=== PATIENT | female | born 1965 | race Caucasian/White ===

== ENCOUNTER 2017-01-06 06:57 | Observation (INO) | payer OTHER ==
[~2017-01-06 06:57] MED LIST: Buffered Lidocaine 1% SYRIN* 3 ML/SYR SYRINGE INTRADERM ONE; Dexamethasone IV* 4 MG/ML 1 ML (4 MG) IV SLOW PU ONE; Famotidine IV* 10 MG/ML 2 ML (20 mg) IV ONE
[2017-01-06 07:30] LABS: Manual Entry Verification HAN0055; UR Preg Internal Control QC Line Present
[2017-01-06] MEDS ORDERED: Famotidine IV* 10 MG/ML 2 ML (20 mg) ONE (07:32)
[2017-01-06] MEDS ORDERED: Dexamethasone IV* 4 MG/ML 1 ML (4 MG) ONE (07:32)
[2017-01-06] MEDS ORDERED: ceFAZolin 2 GM PREMIX(*) 2 GM/50 ML BAG IVPB ONE (07:33)
[2017-01-06] MEDS ORDERED: Thrombin 5,000 UNITS* 1 APPLIC KIT - topical use - TOPICAL ONE (08:40)
[2017-01-06] MEDS ORDERED: Lidocain 1% EPI 1:100,000 * 30 ML MDV ONE (08:40)
[2017-01-06] MEDS ORDERED: Bacitracin IV* 50,000 UNITS INJ ONE (08:41)
[2017-01-06] MEDS ORDERED: Propofol* 10 MG/ML 20 ML BTL IV PUSH ONE (09:53)
[2017-01-06] MEDS ORDERED: Lidocaine 2% PF* 5 ML VIAL ONE (09:53)
[2017-01-06] MEDS ORDERED: fentaNYL* 50 MCG/ML 5 ML VIAL (250 MCG VIAL) ONE (09:54)
[2017-01-06] MEDS ORDERED: Rocuronium* 10 MG/ML VIAL ONE (09:54)
[2017-01-06] MEDS ORDERED: oxyCODONE/Acetamin 5/325 MG* TAB PO PRN (10:34)
[2017-01-06] MEDS ORDERED: Scopolamine 1.5 mg* PATCH TRANSDERM PRN (10:34)
[2017-01-06] MEDS ORDERED: PROCHLORPERAZINE INJ 5 MG/ML 2 ML VIAL IV PRN (10:34)
[2017-01-06] MEDS ORDERED: fentaNYL* 50 MCG/ML 2 ML VIAL (100 MCG VIAL) ONE ×3 (10:36→13:01)
[2017-01-06] MEDS ORDERED: EPHEDrine (Pressors)* 50 MG/ML VIAL ONE (11:02)
[2017-01-06] MEDS ORDERED: Ondansetron INJ* 2 MG/ML VIAL ONE (11:54)
[2017-01-06] MEDS ORDERED: Magnesium Hydroxide LIQ* 30 ML UDC PO PRN (12:18)
[2017-01-06] MEDS ORDERED: Acetaminophen TAB* 325 MG PO PRN (12:18)
[2017-01-06] MEDS ORDERED: SUMAtriptan TAB* 25 MG PO PRN (12:22)
[2017-01-06] MEDS: fentaNYL* 50 MCG/ML 2 ML VIAL (100 MCG VIAL) IV PRN ×3 (12:39→13:32)
[2017-01-06] MEDS ORDERED: Morphine INJ* 10 MG/ML 1 ML SYRINGE ONE (13:01)
[2017-01-06] MEDS: Morphine INJ* 2 MG/ML 1 ML SYRINGE IV PRN ×2 (13:02→13:15)
--- NOTE | 2017-01-06 13:23 | RAD ---
Indication: Anterior core decompression and fusion at C4-C5, C5-C6, and C6-C7. Comparison: July 05, 2016 MRI. Technique: Crosstable lateral radiographs of the cervical spine performed in the OR. Report: 1031 hours exam: Endotracheal tube in place. Sensor lead level of the oropharynx. At the caudal margin of the [id number] a linear metallic instrument/needle is visualized at the approximate C6 vertebral body level with conspicuity of the spine limited by superimposed tissues. 1049 hours exam: Tip of metallic instrument/needle is at the level of the C4-C5 disc space. 1220 hours exam: While conspicuity is limited due to superimposed tissues a cortical plate is visualized spanning from C5 to C7 with vertebral body screws at C5, C6, and C7. Intervening bone graft at the disc spaces. IMPRESSION: Procedural control films.
[2017-01-06] MEDS ORDERED: Benzocaine/Menthol LOZ* 1 LOZENGE PO PRN (13:51)
[2017-01-06] MEDS: HYDROcodone/ACETAMIN 5-325 MG* 1 TAB PO PRN ×2 (15:03→20:07)
[2017-01-07] MEDS: HYDROcodone/ACETAMIN 5-325 MG* 1 TAB PO PRN ×3 (03:21→13:57)
--- NOTE | 2017-01-07 07:47 | PN ---
Progress Note - Progress Note SOAP: Subjective: []POD # 1 Feels better,arms improved Some chin numbness but already resolving Objective: []Neuro intact , neck soft Mod drain output Assessment: []Stable post op Plan: []Will recheck drain output this aft and d/c hopefully
[2017-01-07 08:33] LABS: Hematocrit 34 % (35-47); Hemoglobin 11.4 g/dl (12.0-16.0); Mean Corpuscular HGB Conc 33 g/dl (31-36); Mean Corpuscular Hemoglobin 29 pg (27-31); Mean Corpuscular Volume 87 fL (80-97); Mean Platelet Volume 8 um3 (7.4-10.4); Red Blood Count 3.94 10^6/ul (4.0-5.4); Red Cell Distribution Width 17 % (10.5-15); White Blood Count 5.8 10^3/ul (3.5-10.8)
[2017-01-07] MEDS ORDERED: Folic Acid TAB* 1 MG PO SCH (09:00)
[2017-01-07] MEDS ORDERED: Atorvastatin* 10 MG TAB PO SCH (09:00)
[2017-01-07] MEDS ORDERED: Methotrexate TAB* 2.5 MG PO SCH (09:00)
[2017-01-07] MEDS ORDERED: Citalopram TAB* 20 MG PO SCH (09:00)
[2017-01-07 10:03] VITALS: BP 100/60
[2017-01-09] MEDS ORDERED: Scopolomine PATCH Remove* 1 NOTE MISC PATCH OFF ONE (10:35)
--- NOTE | 2017-01-10 12:51 | OP ---
DATE OF OPERATION: 01/06/17 - ROOM #339 DATE OF : 67 SURGEON: Luis Eduardo Cam MD DOMESTIC TECHNICIAN: MARTHA Lazo ANESTHESIOLOGIST: Lela Mccord MD ANESTHESIA: General. PRE-OP DIAGNOSIS: Cervical spondylosis C5-6, C6-7. POST-OP DIAGNOSIS: Cervical spondylosis C5-6, C6-7. OPERATIVE PROCEDURE: Anterior cervical diskectomy and allograft fusion, C5-6 and C6-7 with anterior instrumentation. DESCRIPTION OF PROCEDURE: After satisfactory general anesthesia was obtained, the patient was placed on the operating table in the supine position with the neck slightly extended and the head maintained in a horseshoe headrest. The anterior aspect of the cervical spine was clipped, prepped, and draped in a sterile manner for anterior cervical exposure and a skin incision outlined over the C5-6 interspace with the assistance of a hot air furnace installer repairer radiograph. This incision was infiltrated with 1% Xylocaine with epinephrine after which it was turned down sharply to the level of the subcutaneous tissues. A superior and inferiorly based subcutaneous flap was then fashioned and the platysma muscle divided along the direction of its fibers. Utilizing a combination of sharp and blunt dissection, a dissection plane was carried down to the anterior aspect of the spine. An additional radiograph verified the C4-5 interspace, after which the initial decompression was done at the C5-6 level. Self- retaining retractors were placed replaced to facilitate exposure. At the C5-6 level, there was noted to be a large anterior spur that was decompressed utilizing the Midas Mehran drill. The anterior two-thirds of disk material was removed utilizing a combination of the drill, curettes and pituitary rongeurs. [place] distractor pins were then placed in the C5 and C6 vertebral bodies and gentle disk space distraction applied. The operating microscope was then brought into the field and the remainder of the procedure was done under microscopic visualization. Projecting posteriorly at the C5-6 level was a large spur, predominantly coming off the superior aspect of C6. This was decompressed with a combination of the Midas Mehran drill and [place] rongeurs. This was carried back posteriorly until normal dura was encountered. At the conclusion of the decompression, a nerve hook went out readily with both C6 nerve roots. A 7- mm bone graft was then placed into the vertebral body defect and slightly countersunk. Attention was then directed to the C6-7 level where a similar large anterior osteophyte was drilled down and removed. [place] distractor pins were then placed in the C6-C7 vertebral bodies and gentle disk space distraction applied. At this level, the degenerative changes were even more pronounced. Again, dissection was carried back until normal dura was encountered. At the conclusion of the decompression, the C7 nerve roots were noted to be free in their course. An 8-mm graft was placed at this level and slightly countersunk. The vertebral bodies were then smoothed out to accept a [employer] [place] plate extending from C5 to C7 and secured into position with 13-mm self-drilling screws. A post-construct x-ray showed good placement of the graft at C5-6 with good screw placement in C5. The portion of the construct below this could not be seen secondary to the patient's body habitus. After assuring hemostasis, the wound was thoroughly irrigated after which a drain was placed in the prevertebral space and tunneled out towards the right side. The subcutaneous tissues were then reapproximated with 3-0 Vicryl and the skin closed with Steri-Strips. The estimated blood loss was less than 50 cc and the final sponge, padding, and needle counts were correct. The patient was taken to the recovery room, extubated, and in stable condition. [id number]/[facility] #: [id number] JARROD
--- NOTE | 2017-01-22 00:26 | DS ---
DISCHARGE SUMMARY: DATE OF ADMISSION: 01/06/17 DATE OF DISCHARGE: 01/07/17 DISCHARGE DIAGNOSIS: Cervical spondylosis, C5-6 and C6-7. SPECIAL PROCEDURE: Anterior cervical diskectomy and fusion, C5-6 and C6-7 with instrumentation. HOSPITAL COURSE: This 51-year-old female was seen in office with signs and symptoms of cervical spo ndylosis with radiculopathy. She has failed to improve over several months with conservative treatm ents and was admitted at this time for elective surgical intervention. On the day of admission, she was taken to surgery, where under general anesthesia, an anterior cervical diskectomy and fusion at C5-6 and C6-7 operation was carried out. Postoperatively, she has done well. She was eating _ and drinking without difficulty. She was ambulating independently. Pain is well controlled with o ral pain medication. On the first postoperative day, she was discharged home to the care of her [facility]. Discharge instructions including wound care and activity level were discussed with the patient and provided. She will be seen in our office in approximately 2 weeks for followup. DISCHARGE MEDICATIONS: [place] 5/325 mg 2 tablets by mouth every 4 hours as needed for pain. MARTHA KEY [id number]/[facility] #: [id number]
== END 2017-01-07 14:05 | disposition home or self-care (01) ==
LOC: OR 06:57 → SSU 13:52
PROVIDERS: ADMIT Neurological Surgery; ATTEND Neurological Surgery
PROC: 0RG20K0 Fusion of 2 or more Cervical Vertebral Joints with Nonautologous Tissue Substitute, Anterior Approach, Anterior Column, Open Approach (ICD-10-PCS; 2017-01-06)
PROC: 0RB30ZZ Excision of Cervical Vertebral Disc, Open Approach (ICD-10-PCS; principal; 2017-01-06 09:00)
DX: M47.22 Other spondylosis with radiculopathy, cervical region (principal)
CPT/HCPCS: 36415; 72040; 81025; 85025; 96374; A9270-GY; C1713; C1776; C9359; G0378; J0690; J1100; J2270; J2405; J2704; J3010; J8610

== ENCOUNTER 2019-12-25 22:00 | Emergency (ER) | payer OTHER ==
--- OUTSIDE RECORDS SUMMARY | 2019-12-25 22:06 | XMS REPORT | Continuity of Care Document ---
:1965 External Reference #:[id number] Author Name Ashley Raya DNP, RN, EXTRUSION MANAGER-BC (transmitted by agent of provider Codie Douglas) Address [address] [facility], [address] [place] [id number] Care Team Providers Name Role Phone Juju Byrd, DO - Family Medicine Care Team Information Printing Bindery Assistant Morteza Hoffmann DO - Family Care Team Information Printing Bindery Assistant [phone] Medicine Problems Active Problems Provider Date Cervical spondylosis without Luis Eduardo Cam M.D. Onset: 07/19/2016 myelopathy Convalescence after surgery Luis Eduardo Cam M.D. Onset: 02/16/2017 Hyperlipidemia Onset: 09/09/2014 Obstructive sleep apnea syndrome Ashley Raya DNP, RN, Onset: 08/16/2019 EXTRUSION MANAGER-BC Note: Mild. 10/21/18 HST: AHI 7.8/hour, latesha oxygen 88%, wt 238 Social History Type Date Description Comments Sex Unknown Tobacco Use Start: Unknown Never Smoked Cigarettes Smoking Status Reviewed: 12/24/19 Never Smoked Cigarettes ETOH Use Occasionally consumes alcohol Tobacco Use Start: Unknown Patient has never smoked Recreational Drug Use Denies Drug Use Exercise Type/Frequency Exercises sporadically Allergies, Adverse Reactions, Alerts Active Allergies Reaction Severity Comments Date Lyrica Urticaria 07/19/2016 Medications Active Medications SIG Qnty Indications Ordering Date Provider Meclizine HCL Take one 30tabs Sebas Hope, 11/09/2018 12.5mg capsule/tablet by M.D. Tablets mouth twice daily as needed for vertigo Naproxen 1 tablet with 180tabs M51.36 Sebas Hope, 08/02/2018 500mg Tablets food by mouth M.D. twice a day as needed for pain, avoid other nsaids Tizanidine HCL 1 or 2 cap by [facility] M54.6 Sebas Hope, 05/15/2018 2mg mouth as needed M.D. Capsules at night for spasms Flintstones Complete 1 tab by mouth Unknown twice daily 60mg Chewtabs Ondansetron HCL one by mouth Unknown 4mg every 8 hours as Tablets needed for nausea Clonazepam Take One Tablet Unknown 0.5mg By Mouth Every 8 Tablets Hours as Needed For Anxiety Maximum Daily Dose Three Tablets Tramadol HCL 1-2 tablets by Unknown 50mg mouth every 6 Tablets hours as needed pain Orencia As directed. Unknown Beginning January, per pt Sumatriptan Succinate 1 tab by mouth as Unknown needed for 50mg Tablets migraine Escitalopram Oxalate 1 by mouth every Unknown day 10mg Tablets Vitamin D-3 1000 Iu 2 tabs Unknown Tablets (2000 Iu) by mouth daily Vitamin B Complex 1 by mouth every Unknown day Tablets Calcium + D3 1 by mouth every Unknown day [id number] Tablets Cranberry Concentrate 1 by mouth every Unknown day 500mg Capsules Magnesium Citrate 1 by mouth every Unknown 100mg day Tablets Flax Seed ,Fish Oil 1 by mouth every Unknown day 1000mg Capsules Simvastatin Take One Tablet Unknown 20mg By Mouth Every Tablets Day Medications Administered in Office Medication SIG Qnty Indications Ordering Provider Date PPD Sebas Hope M.D. 08/02/2018 Injection Immunizations CPT Code Status Date Vaccine Reaction Lot # [id number] Given 11/09/2018 Pneumococcal Conjugate no immediate reaction [id number] Vaccine 13 Valent For noted Intramuscular Use 33352 Given 08/02/2018 Influenza Virus Vaccine, no immediate reaction [id number] Quadrivalent, Split, Preservative Free 25955 Given 08/24/2014 Influenza Virus 3Yrs & Over 30948 Given 08/17/2011 Tdap - Tetanus/Diptheria/Acellular Pertussis Vital Signs Date Vital Result Comment 12/24/2019 8:21am Height 65 inches 5'5" Weight 238.00 lb Heart Rate 63 /min BP Systolic Sitting 118 mmHg lg BP Diastolic Sitting 78 mmHg lg O2 % BldC Oximetry 98 % BMI (Body Mass Index) 39.6 kg/m2 08/20/2019 8:04am Height 65 inches 5'5" Heart Rate 64 /min BP Systolic Sitting 116 mmHg Lue large cuff BP Diastolic Sitting 82 mmHg Lue large cuff Respiratory Rate 12 /min O2 % BldC Oximetry 98 % On Ra Results Test Acquired Date Facility Test Result H/L Range Note Laboratory test 08/08/2019 [facility] Erythrocyte Sed 13 mm/Hr Normal 0-[address] [place] [address] [phone] C Reactive Protein 1.10 mg/L Normal <8.01 CBC W/Auto 08/08/2019 [facility] White Blood 2.3 10^3/uL Low 3.5-10.[address] [place] [address] [phone] Red Blood Count 4.57 10^6/uL Normal 3.70-4.87 Hemoglobin 14.0 g/dL Normal 12.0-16.0 Hematocrit 40 % Normal 35-47 Mean Corpuscular Volume 88 fL Normal 80-97 Mean Corpuscular Hemoglobin 31 pg Normal 27-31 Mean Corpuscular HGB Conc 35 g/dL Normal 31-36 Red Cell Distribution Width 14 % Normal 10-15 Platelet Count 116 10^3/uL Low 150-450 Mean Platelet Volume 7.7 fL Normal 7.4-10.4 Abs Neutrophils 1.0 10^3/uL Low 1.5-7.7 Abs Lymphocytes 1.0 10^3/uL Normal 1.0-4.8 Abs Monocytes 0.2 10^3/uL Normal 0-0.8 Abs Eosinophils 0.0 10^3/uL Normal 0-0.6 Abs Basophils 0.0 10^3/uL Normal 0-0.2 Abs Nucleated RBC 0.0 10^3/uL Granulocyte % 45.5 % Lymphocyte % 44.4 % Monocyte % 8.7 % Eosinophil % 0.8 % Basophil % 0.6 % Nucleated Red Blood Cells % 0.0 Laboratory 08/08/2019 [facility] TSH (Thyroid 1.66 Normal 0.34 -5.60 test finding [address] Stim Horm) mcIU/[place] [address] [phone] Aldolase 6.3 U/L <7.7 1 CMP Panel 08/08/2019 [facility] Sodium 141 mmol/L Normal 135- [address] [place] [address] [phone] Potassium 4.1 mmol/L Normal 3.5-5.0 Chloride 108 mmol/L Normal 101-111 Co2 Carbon Dioxide 28 mmol/L Normal 22-32 Anion Gap 5 mmol/L Normal 2-11 Glucose 94 mg/dL Normal 70-100 Blood Urea Nitrogen 16 mg/dL Normal 6-24 Creatinine 0.65 mg/dL Normal 0.51-0.95 BUN/Creatinine Ratio 24.6 High 8-20 Calcium 9.1 mg/dL Normal 8.6-10.3 Total Protein 6.4 g/dL Normal 6.4-8.9 Albumin 4.2 g/dL Normal 3.2-5.2 Globulin 2.2 g/dL Normal 2-4 Albumin/Globulin Ratio 1.9 Normal 1-3 Total Bilirubin 0.70 mg/dL Normal 0.2-1.0 Alkaline Phosphatase 89 U/L Normal 34-104 Alt 19 U/L Normal 7-52 Ast 24 U/L Normal 13-39 Egfr Non- 95.7 >60 Egfr 115.8 >60 2 1 Test Performed by: [place] [address] Tub Mender: Nicanor Walls M.D. Ph.D.; IA# [id number] 2 Because ethnic data is not always readily available, this report includes an eGFR for both -Americans and non- Americans. The National Kidney Disease Education Program (NKDEP) does not endorse the use of the MDRD equation for patients that are not between the ages of 18 and 70, are , have extremes of body size, muscle mass, or nutritional status, or are non- or non-. According to the National Kidney Foundation, irrespective of diagnosis, the stage of the disease is based on the level of kidney function: Stage Description GFR(mL/min/1.73 m(2)) 1 Kidney damage with normal or decreased GFR 90 2 Kidney damage with mild decrease in GFR 60-89 3 Moderate decrease in GFR 30-59 4 Severe decrease in GFR 15-29 5 Kidney failure <15 (or dialysis) Procedures Description No Information Available Medical Devices Description No Information Available Encounters Type Date Location Provider Dx Diagnosis Office Visit 11/08/2019 [facility] D[facility]at[facility] AT [place] Or[place]ga, L40.0 Psoriasis 3:00p [facility] MENDOZA vulgaris L85.3 Xerosis cutis Office Visit 08/20/2019 [facility] And Ashley G47.33 Obstructive sleep 8:15a [facility] Raya RN, apnea (adult) [facility] (pediatric) Office Visit 08/08/2019 [facility] 9:00a at [facility] tendinitis, right leg Office Visit 08/08/2019 Rheumatology Sebas Hope M06.09 Rheumatoid 10:40a Services [facility] 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 tendinitis, right leg M19.072 Primary osteoarthritis, left ankle and foot M76.821 Posterior tibial tendinitis, right leg Office Visit 07/04/2019 2:00p Meera Beltran Achilles at [facility] Jarquin M.D. 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 rheumatoid factor, multiple sit 08/08/2019 M76.61 Achilles tendinitis, right leg Adrian Jarquin M.D. 08/08/2019 D69.6 Thrombocytopenia, unspecified Sebas Hope M.D. 08/08/2019 M79.7 Fibromyalgia Sebas Hope M.D. 08/08/2019 Z79.899 Other fdc (current) drug Sebas Hope M.D. therapy 07/25/2019 M76.61 Achilles tendinitis, right leg Adrian Jarquin M.D. 07/25/2019 M19.072 Primary osteoarthritis, left ankle Adrian Jarquin M.D. and foot 07/25/2019 M76.821 Posterior tibial tendinitis, right Adrian Jarquin M.D. leg 07/04/2019 M76.61 Achilles tendinitis, right leg Adrian Jarquin M.D. 07/04/2019 M19.072 Primary osteoarthritis, left ankle Adrian Jarquin M.D. and foot Plan of Treatment Future Appointment(s):03/24/2020 8:15 am - Ashley Raya DNP, RN, EXTRUSION MANAGER- at [facility]01/10/2020 8:30 am - Tyrone Real MD at [facility] Dermatology AT Dhivpbtk45/17/2020 - Ashley Raya DNP, RN, EXTRUSION MANAGER- BCG47.33 Obstructive sleep apnea (adult) (pediatric)Comments:- 10/21/18 HST AHI 7.8/hour, latesha oxygen 88%, wt 238On CPAP auto 5-12 cm AHI 1/hour, normalFollow up:3 monthsRecommendations:Continue PAP device, Benefitting and compliant with treatment. Since you watch TV in bed and fall asleep, recommend not watching TV in bed, if you must watch TV in bed recommend putting mask on when you get in bed. Try the [employer] FFM (small) fitted today to try. Cleaning Wipe off mask daily (baby wipe-no scent, or warm water) Clean mask, tubing, filter, and water chamber weekly in mild no scent dish soap and water. Hang to dry. If you have any sleepiness while driving you MUST avoid operatinga vehicle or machinery. If you have difficulty with your equipment, or need to replace your mask or hoses, please contact your homecare agency. A weight change of 20 pounds or more may have an effect on your equipment; if you are experiencing problems please call for an appointment. Avoid weight gain, weight loss recommended. If you have any further questions, please call the [facility] at [phone]. Functional Status Description No Information Available Mental Status Description No Information Available Referrals Description No Information Available
--- OUTSIDE RECORDS SUMMARY | 2019-12-25 22:06 | XMS REPORT | Continuity of Care Document ---
:1965 External Reference #:[id number] Author Name Sarah Fragoso (transmitted by agent of provider Morteza Hoffmann) Address [address] [place] [id number] Care Team Providers Name Role Phone HCP given Care Team Information Curriculum Counselor Unavailable [facility] Architectural Engineering Teacher [facility] - Care Team Information Curriculum Counselor [phone] Obstetrics & Gynecology Problems Active Problems Provider Date Pure hypercholesterolemia Nicanor Crawford M.D. Onset: 12/11/2012 Allergic asthma without status asthmaticus Nicanor Crawford M.D. Onset: Myalgia & Myositis Unspecified Morteza Hoffmann D.O. Onset: 10/26/2013 Low back pain Morteza Hoffmann D.O. Onset: 10/26/2013 Irritable bowel syndrome Morteza Hoffmann D.O. Onset: 10/26/2013 Meralgia paresthetica Morteza Hoffmann D.O. Onset: 12/11/2013 Pain in thoracic spine Morteza Hoffmann D.O. Onset: 12/11/2013 Asthma without status asthmaticus Nicanor Crawford M.D. Onset: 01/04/2014 Neck pain Morteza Hoffmann D.O. Onset: 06/21/2014 Brachial neuritis Morteza Hoffmann D.O. Onset: 04/02/2016 Generalized anxiety disorder Morteza Hoffmann D.O. Onset: 04/02/2016 Recurrent major depressive episodes Morteza Hoffmann D.O. Onset: 04/02/2016 Collagen disease Morteza Hoffmann D.O. Onset: 06/26/2016 Spinal stenosis in cervical region Morteza Hoffmann D.O. Onset: 07/09/2016 Cervical spondylosis without myelopathy Morteza Hoffmann D.O. Onset: 2015 Undifferentiated connective tissue disease Morteza Hoffmann D.O. Onset: 2015 Uncomplicated moderate persistent asthma Morteza Hoffmann D.O. Onset: 2017 Social History Type Date Description Comments Sex Unknown ETOH Use Rare Tobacco Use Start: Unknown Non Smoker / No Tobacco Recreational Drug Use Denies Drug Use Smoking Status Reviewed: 12/24/19 Non Smoker / No Tobacco Exercise Type/Frequency Exercises sporadically Sun Exposure Does not use sunscreen Seat Belt/Car Seat always uses seat belt Allergies, Adverse Reactions, Alerts Active Allergies Reaction Severity Comments Date Lyrica hives 12/11/2012 Medications Active Medications SIG Qnty Indications Ordering Date Provider Fluocinonide apply bid Unknown 11/08/2019 0.05% Ointment Fluocinonide apply every kang Unknown 11/08/2019 0.05% Solution Triamcinolone apply thin layer 15gm Morteza Hoffmann, 09/17/2019 Acetonide to affected areas D.O. 0.1% Cream three times a day as needed for itching. Magnesium Citrate 1-2 every evening Unknown 08/07/2019 100mg as needed Tablets Ondansetron HCL 1 by mouth three 30tabs Brian Farias, 07/03/2019 4mg times a day as M.D. Tablets needed for nausea Childrens Chewable 1 tab bid D64.9 Brian Farias, 05/14/2019 Multivitamin With M.D. Iron Chewtabs Klonopin take 1 every 8 30tabs F33.9 Morteza Hoffmann, 04/25/2019 0.5mg Tablets hours as needed D.O. for anxiety Tramadol HCL 1-2 by mouth 120tabs M06.09 Morteza Hoffmann, 01/18/2019 50mg every 6 hours as D.O. Tablets needed for pain Naproxen Take One Tablet Unknown 08/02/2018 500mg Tablets By Mouth Twice A Day With Food as Needed For Pain Avoid Other NSAIDS Tizanidine HCL 1-2 at night po Unknown 06/01/2018 2mg as needed for Capsules spasms Calcium one po daily Unknown 05/10/2018 Vitamin B one, 2x's a week Unknown 05/10/2018 Vitamin D 3 po daily Unknown 05/10/2018 Fish Oil [place]-3 one po daily Unknown 05/10/2018 1000mg Capsules Nystatin apply topically 30gm Morteza Hoffmann, 04/29/2018 [id number]/GM to affected area D.O. Cream two times a day for juliocesar infection Sumatriptan Succinate Take One Tablet 9tabs G43.109 Morteza Hoffmann, 2015 By Mouth AT Onset D.O. 50mg Tablets Of Migraine, May Repeat Once After Two Hours If Needed, Max Of Three Times Per Week Escitalopram Oxalate Take One Tablet 90tabs Morteza Hoffmann, 07/30/2016 By Mouth Every D.O. 10mg Tablets Day Cranberry One Daily Unknown 06/25/2016 [id number] Capsules Simvastatin Take One Tablet 90tabs E78.0 Morteza Hoffmann, 08/23/2013 20mg By Mouth Every D.O. Tablets Day Orencia monthly Unknown 250mg Solution Rec History Medications Prednisone 2 pills for 3 11tabs M79.7 Brian Farias, 09/27/2019 - 20mg days then 1 M.D. 11/27/2019 Tablets pill for 3 days 1/2 pill for 4 days. Medications Administered in Office Medication SIG Qnty Indications Ordering Provider Date injection, kenalog, 10 mg Morteza Hoffmann D.O. 06/02/2018 Injection SC/Im Injections Morteza Hoffmann D.O. 06/02/2018 Injection injection, kenalog, 10 mg Morteza Hoffmann D.O. 06/18/2017 Injection Immunizations CPT Code Status Date Vaccine Lot # [id number] Given 08/08/2019 Influenza Virus Vaccine, Quadrivalent, Split, [id number] Preservative Free 86755 Given 11/09/2018 Prevnar 13 90467 Given 11/09/2018 Prevnar (Pneumococcal Conjugate) 44620 Given 08/07/2018 Influenza Virus Vaccine, Quadrivalent, Split, Im Use 33284 Given 08/02/2018 Influenza Virus Vaccine, Quadrivalent, Split, Preservative Free 25989 Given 09/07/2017 Influenza Virus Vaccine, Quadrivalent, Split, Preservative Free 31588 Given 08/28/2016 Influenza Virus Vaccine, Quadrivalent, Split, [id number] Preservative Free 63080 Given 08/24/2014 Flu, Split Virus 3Yrs 51693 Given 09/14/2012 Pneumococcal Immunization 12648 Given 08/17/2011 Adacel or Boostrix, TDaP 20159 Given 06/21/2011 Adacel or Boostrix, TDaP [id number] Refused 01/04/2014 Flu, Split Virus 3Yrs Vital Signs Date Vital Result Comment 12/24/2019 4:58pm BP Systolic 116 mmHg BP Diastolic 70 mmHg Weight 238.00 lb per pt 11/28/2019 10:58am BP Systolic 108 mmHg BP Diastolic 66 mmHg Heart Rate 58 /min O2 % BldC Oximetry 98 % Body Temperature 98.2 F Results Test Acquired Date Facility Test Result H/L Range Note Comp Metabolic 12/24/2019 [facility] Sodium 138 mmol/L Normal 135- 145 Panel [phone] Potassium 4.1 mmol/L Normal 3.5-5.0 Chloride 105 mmol/L Normal 101-111 Co2 Carbon Dioxide 28 mmol/L Normal 22-32 Anion Gap 5 mmol/L Normal 2-11 Glucose 121 mg/dL High 70-100 Blood Urea Nitrogen 13 mg/dL Normal 6-24 Creatinine 0.74 mg/dL Normal 0.51-0.95 BUN/Creatinine Ratio 17.6 Normal 8-20 Calcium 9.0 mg/dL Normal 8.6-10.3 Total Protein 6.3 g/dL Low 6.4-8.9 Albumin 4.0 g/dL Normal 3.2-5.2 Globulin 2.3 g/dL Normal 2-4 Albumin/Globulin Ratio 1.7 Normal 1-3 Total Bilirubin 0.60 mg/dL Normal 0.2-1.0 Alkaline Phosphatase 94 U/L Normal 34-104 Alt 23 U/L Normal 7-52 Ast 23 U/L Normal 13-39 Egfr Non- 82.1 >60 Egfr 99.3 >60 1 Laboratory test 12/24/2019 [facility] C Reactive 2.89 mg/L Normal < 8.01 finding [phone] Protein CBC Auto Diff 12/24/2019 [facility] White Blood 2.8 Low 3.5-10.8 [phone] Count 10^3/uL Red Blood Count 4.48 10^6/uL Normal 3.70-4.87 Hemoglobin 14.0 g/dL Normal 12.0-16.0 Hematocrit 40 % Normal 35-47 Mean Corpuscular Volume 89 fL Normal 80-97 Mean Corpuscular Hemoglobin 31 pg Normal 27-31 Mean Corpuscular HGB Conc 35 g/dL Normal 31-36 Red Cell Distribution Width 13 % Normal 10-15 Platelet Count 126 10^3/uL Low 150-450 Mean Platelet Volume 8.0 fL Normal 7.4-10.4 Abs Neutrophils 1.4 10^3/uL Low 1.5-7.7 Abs Lymphocytes 1.1 10^3/uL Normal 1.0-4.8 Abs Monocytes 0.2 10^3/uL Normal 0-0.8 Abs Eosinophils 0.0 10^3/uL Normal 0-0.6 Abs Basophils 0.0 10^3/uL Normal 0-0.2 Abs Nucleated RBC 0.0 10^3/uL Granulocyte % 49.7 % Lymphocyte % 40.5 % Monocyte % 8.0 % Eosinophil % 1.1 % Basophil % 0.7 % Nucleated Red Blood Cells % 0.1 Laboratory test 12/24/2019 [facility] Erythrocyte Sed 14 mm/Hr Normal 0-29 finding [phone] Rate Influenza A & B 11/28/2019 [facility] Flu AB Disclaimer (SEE NOTE) 2 Request [phone] Influenza A Molecular NEGATIVE Negative Influenza B Molecular NEGATIVE Negative 3 CBC Auto Diff 11/12/2019 [facility] White Blood Count 2.7 10^3/uL Low 3.5-10.8 [phone] Red Blood Count 4.71 10^6/uL Normal 3.70-4.87 Hemoglobin 14.6 g/dL Normal 12.0-16.0 Hematocrit 43 % Normal 35-47 Mean Corpuscular Volume 91 fL Normal 80-97 Mean Corpuscular Hemoglobin 31 pg Normal 27-31 Mean Corpuscular HGB Conc 34 g/dL Normal 31-36 Red Cell Distribution Width 14 % Normal 10-15 Platelet Count 129 10^3/uL Low 150-450 Mean Platelet Volume 8.3 fL Normal 7.4-10.4 Abs Neutrophils 1.4 10^3/uL Low 1.5-7.7 Abs Lymphocytes 0.9 10^3/uL Low 1.0-4.8 Abs Monocytes 0.2 10^3/uL Normal 0-0.8 Abs Eosinophils 0.0 10^3/uL Normal 0-0.6 Abs Basophils 0.0 10^3/uL Normal 0-0.2 Abs Nucleated RBC 0.0 10^3/uL Granulocyte % 54.5 % Lymphocyte % 35.7 % Monocyte % 7.7 % Eosinophil % 1.4 % Basophil % 0.7 % Nucleated Red Blood Cells % 0.1 Comp Metabolic Panel 11/12/2019 [facility] Sodium 141 mmol/L Normal 135-145 [phone] Potassium 4.3 mmol/L Normal 3.5-5.0 Chloride 107 mmol/L Normal 101-111 Co2 Carbon Dioxide 29 mmol/L Normal 22-32 Anion Gap 5 mmol/L Normal 2-11 Glucose 106 mg/dL High 70-100 Blood Urea Nitrogen 15 mg/dL Normal 6-24 Creatinine 0.67 mg/dL Normal 0.51-0.95 BUN/Creatinine Ratio 22.4 High 8-20 Calcium 9.2 mg/dL Normal 8.6-10.3 Total Protein 6.3 g/dL Low 6.4-8.9 Albumin 4.1 g/dL Normal 3.2-5.2 Globulin 2.2 g/dL Normal 2-4 Albumin/Globulin Ratio 1.9 Normal 1-3 Total Bilirubin 0.70 mg/dL Normal 0.2-1.0 Alkaline Phosphatase 85 U/L Normal 34-104 Alt 20 U/L Normal 7-52 Ast 22 U/L Normal 13-39 Egfr Non- 92.1 >60 Egfr 111.4 >60 4 Laboratory test finding 11/12/2019 [facility] Ferritin 57.1 ng/mL Normal 11-307 5 [phone] Erythrocyte Sed Rate 8 mm/Hr Normal 0-29 6 CRP High Sensitivity 0.89 mg/L <2.00 7 Laboratory test 09/27/2019 [facility] Erythrocyte Sed 10 mm/Hr Normal 0-29 finding [phone] Rate C Reactive Protein 1.47 mg/L Normal <8.01 Laboratory test 08/08/2019 [facility] Erythrocyte Sed 13 mm/Hr Normal 0-29 finding [phone] Rate Aldolase 6.3 U/L <7.7 8 CBC Auto Diff 08/08/2019 [facility] White Blood Count 2.3 10^3/uL Low 3.5-10.8 [phone] Red Blood Count 4.57 10^6/uL Normal 3.70-4.87 [...] Nucleated Red Blood Cells % 0.0 Laboratory test 08/08/2019 [facility] C Reactive 1.10 mg/L Normal < 8.01 finding [phone] Protein TSH (Thyroid Stim Horm) 1.66 mcIU/mL Normal 0.34-5.60 Comp Metabolic Panel 08/08/2019 [facility] Sodium 141 mmol/L Normal 135-145 [phone] Potassium 4.1 mmol/L Normal 3.5-5.0 Chloride 108 [...] Egfr Non- 95.7 >60 Egfr 115.8 >60 9 Laboratory test 07/19/2019 [facility] Surgical SEE RESULT 10, 11 finding [phone] Pathology Order BELOW Laboratory test 07/19/2019 [facility] Clotest SEE RESULT 12, 13 finding [phone] BELOW O P: 07/04/2019 [facility] O P: SEE RESULT 14 Giardia/Cryptospor [phone] Giardia/Cryptosp BELOW Screen or Screen Laboratory test 07/04/2019 [facility] C Difficile B SEE RESULT 15 finding [phone] PCR BELOW Ova & Parasites 07/04/2019 [facility] Parasitic Exam, See Comment 16 Full [phone] Result Urinalysis Profile 07/04/2019 [facility] Urine Color Domi [phone] Urine Appearance Turbid Urine Specific Wilmore 1.018 Normal 1.010-1.030 Urine pH 8.0 Normal 5-9 Urine Urobilinogen Negative Negative Urine Ketones Trace Abnormal Negative Urine Protein Negative Negative Urine Leukocytes Negative Negative Urine Blood Negative Negative * * Abnormal Negative 17 Urine Nitrite Negative Negative Urine Bilirubin Negative Negative Urine Glucose Negative Negative CBC Auto Diff 07/04/2019 [facility] White Blood Count 3.2 10^3/uL Low 3.5-10.8 [phone] Red Blood Count 4.78 10^6/uL Normal 3.70-4.87 Hemoglobin 14.7 g/dL Normal 12.0-16.0 Hematocrit 43 % Normal 35-47 Mean Corpuscular Volume 89 fL Normal 80-97 Mean Corpuscular Hemoglobin 31 pg Normal 27-31 Mean Corpuscular HGB Conc 35 g/dL Normal 31-36 Red Cell Distribution Width 14 % Normal 10-15 Platelet Count 136 10^3/uL Low 150-450 Mean Platelet Volume 7.8 fL Normal 7.4-10.4 Abs Neutrophils 1.7 10^3/uL Normal 1.5-7.7 Abs Lymphocytes 1.3 10^3/uL Normal 1.0-4.8 Abs Monocytes 0.3 10^3/uL Normal 0-0.8 Abs Eosinophils 0.0 10^3/uL Normal 0-0.6 Abs Basophils 0.0 10^3/uL Normal 0-0.2 Abs Nucleated RBC 0.0 10^3/uL Granulocyte % 51.6 % Lymphocyte % 39.7 % Monocyte % 7.8 % Eosinophil % 0.5 % Basophil % 0.4 % Nucleated Red Blood Cells % 0.1 Comp Metabolic Panel 07/04/2019 [facility] Sodium 140 mmol/L Normal 135-145 [phone] Potassium 4.1 mmol/L Normal 3.5-5.0 Chloride 108 mmol/L Normal 101-111 Co2 Carbon Dioxide 27 mmol/L Normal 22-32 Anion Gap 5 mmol/L Normal 2-11 Glucose 90 mg/dL Normal 70-100 Blood Urea Nitrogen 12 mg/dL Normal 6-24 Creatinine 0.71 mg/dL Normal 0.51-0.95 BUN/Creatinine Ratio 16.9 Normal 8-20 Calcium 9.5 mg/dL Normal 8.6-10.3 Total Protein 6.3 g/dL Low 6.4-8.9 Albumin 4.2 g/dL Normal 3.2-5.2 Globulin 2.1 g/dL Normal 2-4 Albumin/Globulin Ratio 2.0 Normal 1-3 Total Bilirubin 0.70 mg/dL Normal 0.2-1.0 Alkaline Phosphatase 92 U/L Normal 34-104 Alt 28 U/L Normal 7-52 Ast 26 U/L Normal 13-39 Egfr Non- 86.4 >60 Egfr 104.6 >60 18 Laboratory test 07/04/2019 [facility] Magnesium 1.9 mg/dL Normal 1.9- 2.7 finding [phone] Lipase 25 U/L Normal 11.0-82.0 C Reactive Protein < 1.00 mg/L Normal <8.01 Lactic Acid 0.9 mmol/L Normal 0.5-2.0 19 1 Because ethnic data is not always readily [...] 15-29 5 Kidney failure <15 (or dialysis) 2 Suboptimal collection technique may reduce sensitivity of test. Refer to the [employer] Test Catalog for collection information: [email or web address] As with all diagnostic procedures, the laboratory results obtained should be used in conjunction with other clinical information available to the physician, including confirmation by another method, as applicable. 3 Electrical Subcontractor: [id number] 4 Because ethnic data is not always readily [...] 15-29 5 Kidney failure <15 (or dialysis) 5 FASTING 6 FASTING 7 FASTING 8 Test Performed by: [address] [address] Social And Human Services Assistant: Nicanor Walls M.D. Ph.D.; CLIA# [id number] 9 Because ethnic data is not always readily [...] 15-29 5 Kidney failure <15 (or dialysis) 10 [id number] 11 SEE RESULT BELOW Name: LUCÍA HUTSON : [address]: Alli Spicer MD Acct: [id number] Unit: [id number] AGE: 53 Location: [facility] Re07/19/19 SEX: F Status: DEP REF SPEC: [id number] CLAUDINE: 07/19/19-[address] [facility] [address]: Alli Spicer MD REQ: [id number] RECD: 07/19/19-1620 STATUS: JOYCE JEAN DR: Morteza oHffmann DO _ ORDERED: LEVEL 4/2 COMMENTS: [id number] FINAL DIAGNOSIS 1. Esophagus, random, biopsy: -- Benign squamous mucosa with mild erosive changes. -- No evidence of eosinophilic esophagitis. -- No columnar component present for evaluation. 2. Colon, ascending, biopsy: -- Tubular adenoma. -- No high grade dysplasia or malignancy. CLINICAL HISTORY Screening/Surveillance for malignancy in asymptomatic patient; globus POST-OPERATIVE DIAGNOSIS EGD: esophagus ??? biopsy for eosinophilic esophagitis; gastric ??? sleeve, biopsy, unknown GAVE; duodenum ??? normal; colonoscopy: to cecum; ascending polyp ??? biopsy ; few diverticulosis GROSS DESCRIPTION 1. The specimen is received in formalin labeled, Biopsy Random Esophagus, and consists of two white-pink irregular soft tissue fragments measuring 0.3 x 0.2 x 0.1 cm and 0.5 x 0.3 x 0.1 cm which are submitted entirely in one cassette. 2. The specimen is received in formalin labeled, Biopsy Ascending Colon Polyp, and consists of a 0.3 x 0.3 x 0.2 cm lopez-pink polypoid soft tissue fragment which is submitted entirely in one cassette. Signed by and Reported on: Adela Finley MD 07/20/19 1304 END OF REPORT DEPARTMENT OF PATHOLOGY, [address] [place] [address] Ben Matthews M.D. Director [facility] # [id number] 12 [id number] 13 SEE RESULT BELOW Name: ARLEN HUTSONMic Corley : [address]: Alli Spicer MD Acct: [id number] Unit: [id number] AGE: 53 Location: [facility] Re07/19/19 SEX: F Status: DEP REF SPEC: [id number] CLAUDINE: 07/19/19-[address] [facility] [address]: Alli Spicer MD REQ: [id number] RECD: 07/19/19 STATUS: OSITO JEAN DR: Morteza Hoffmann DO _ SOURCE: [facility]: ORDERED: Clotest COMMENTS: [id number] Procedure Result Reported Site Clotest Final 07/20/19741 ML Clotest Negative * ML - Main Lab . END OF REPORT DEPARTMENT OF PATHOLOGY, [address] [place] [address] Ben Matthews M.D. Director [facility] # [id number] 14 SEE RESULT BELOW Name: LUCÍA HUTSON Jory : [address]: Brandon Sanchez MD Acct: [id number] Unit: [id number] AGE: 53 Location: ED Re07/04/19 SEX: F Status: DEP ER SPEC: [id number] CLAUDINE: 07/04/[address]: Adela THOMAS REQ: [id number] RECD: 07/04/19 STATUS: OSITO JEAN DR: Brandon Hoffmann DO _ SOURCE: STOOL SPDESC: ORDERED: O P: Giar/Crypt Procedure Result Reported Site O P: Giardia/Cryptospor Screen Final 07/06/19- 1421 ML Organism 1 Neg Cryptosporidium/Giardia Giardia and cryptosporidium antigen testing performed by enzyme immunoassay. Specimen has been forwarded to reference lab for microscopic parasite examination. TEST LIMITATIONS: As with all diagnostic procedures, the results obtained should be used in conjunction with other clinical information available to the physician, including confirmation by another method. Negative results can occur in samples containing antigen below lower limits of detection of the assay. One negative specimen does not rule out the possibility of a parasitic infection. To improve detection it is recommended that three specimens be collected on separate days over a period of not more than seven days. The use of colonic washes, aspirates or other diluted sample types has not been established and could affect the performance of the assay. Stool samples contaminated with an oily or particulate base (eg. Barium, mineral oil etc.) could interfere with the test and are not recommended. * ML - Main Lab . END OF REPORT DEPARTMENT OF PATHOLOGY, [address] [place] [address] Ben Matthews M.D. Director [facility] # [id number] 15 SEE RESULT BELOW Name: LUCÍA HUTSON : [address]: Brandon Sanchez MD Acct: [id number] Unit: [id number] AGE: 53 Location: ED Re07/04/19 SEX: F Status: DEP ER SPEC: [id number] CLAUDINE: 07/04/[address]: Adela THOMAS REQ: [id number] RECD: 07/04/19 STATUS: OSITO JEAN DR: Brandon Hoffmann DO _ SOURCE: STOOL SPDESC: ORDERED: Chan millan PCR, Stool Culture Procedure Result Reported Site Stool Culture Final 07/06/19- 1454 ML Result No enteric pathogens isolated Testing for Salmonella, Shigella, Aeromonas, Plesiomonas, Yersinia and Campylobacter are included in a Stool Culture. Vibrio spp not routinely tested for in a stool culture. If testing is desired, please request specifically when placing test order. Sensitivities not routinely performed on stool isolates, as antibiotics may prolong the carriage rate of bacteria. Please contact the microbiology lab if sensitivities are required. Stool Specimen Description Final 07/04/19- 2224 ML Stool Color Brown Stool Form Nonformed Stool Consistency Watery Shiga Toxin 1 2 Final 07/06/19- 1411 ML Organism 1 Negative Shiga Toxin 1 2 Immunochromatographic Assay C. difficile PCR Final 07/04/19- 2323 ML Organism 1 027 Presumptive NEGATIVE Organism 2 Toxigenic C.diff NEGATIVE * ML - Main Lab . END OF REPORT DEPARTMENT OF PATHOLOGY, [address] [place] [address] Ben Matthews M.D. Director [facility] # [id number] 16 SOURCE: STOOL PARASITIC EXAMINATION FINAL No parasites seen. Cryptosporidium, Cyclospora, and microsporidia are not readily detected by this method. Single negative specimen does not rule out parasitic infection. Test Performed by: [address] [id number] 17 *Ascorbic acid is present which may interfere with detection of blood. 18 Because ethnic data is not always readily [...] 15-29 5 Kidney failure <15 (or dialysis) 19 [facility] Severe Sepsis and Septic Shock Management Bundle Measure requires all lactic acids initially measuring >2.0 mmol/L be repeated. Procedures Date Code Description Status 12/24/2019 11414 Omt 7-8 Body Regions Completed 09/17/2019 63202 Omt 7-8 Body Regions Completed 08/08/2019 31812 Omt 7-8 Body Regions Completed 07/19/2019 [id number] Colonoscopy Completed Medical Devices Description No Information Available Encounters Type Date Location Provider Dx Diagnosis Office Visit 11/28/2019 Main Office Renee Chapa PA B34.9 Viral infection, 11:00a unspecified Office Visit 11/12/2019 Main Office Sahara Treviño, R53.81 Other malaise 2:00p Z68.38 Body mass index (BMI) 38.0-38.9, adult Office Visit 09/27/2019 10:20a Main Office Sarah Fragoso M54.5 Low back pain M79.7 Fibromyalgia Z79.899 Other correction (current) drug therapy Office Visit 09/17/2019 12:55p Main Office Morteza Hoffmann D.O. M54.5 Low back pain M47.22 Other spondylosis with radiculopathy, cervical region M79.7 Fibromyalgia F33.9 Major depressive disorder, recurrent, unspecified M99.05 Segmental and somatic dysfunction of pelvic region M99.03 Segmental and somatic dysfunction of lumbar region M99.04 Segmental and somatic dysfunction of sacral region M99.00 Segmental and somatic dysfunction of head region M99.02 Segmental and somatic dysfunction of thoracic region M99.01 Segmental and somatic dysfunction of cervical region M99.08 Segmental and somatic dysfunction of rib cage M99.06 Segmental and somatic dysfunction of lower extremity Office Visit 08/08/2019 2:30p Main Office Morteza Hoffmann Z23 Encounter for D.O. immunization M35.8 Other specified systemic involvement of connective tissue F33.9 Major depressive disorder, recurrent, unspecified F41.1 Generalized anxiety disorder M99.05 Segmental and somatic dysfunction of pelvic region M99.03 Segmental and somatic dysfunction of lumbar region M99.04 Segmental and somatic dysfunction of sacral region M99.00 Segmental and somatic dysfunction of head region M99.02 Segmental and somatic dysfunction of thoracic region M99.01 Segmental and somatic dysfunction of cervical region M99.08 Segmental and somatic dysfunction of rib cage M99.06 Segmental and somatic dysfunction of lower extremity Office Visit 07/11/2019 10:40a Main Office Renee Chapa, R10.9 Unspecified PA abdominal pain R11.0 Nausea M35.8 Other specified systemic involvement of connective tissue Office Visit 07/03/2019 2:00p Main Office Morteza Hoffmann D.O. 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, cervical region M48.02 Spinal stenosis, cervical region Z79.899 Other correction (current) drug therapy F41.1 Generalized anxiety disorder G57.11 Meralgia paresthetica, right lower limb M54.2 Cervicalgia M79.7 Fibromyalgia M51.36 Other intervertebral disc degeneration, lumbar region M06.09 Rheumatoid arthritis w/o rheumatoid factor, multiple sites Z79.52 senior care (current) use of systemic steroids Assessments Date Code Description Provider 12/24/2019 M79.7 Fibromyalgia Morteza Hoffmann D.O. 12/24/2019 M54.5 Low back pain Morteza Hoffmann D.O. 12/24/2019 M54.6 Pain in thoracic spine Morteza Hoffmann D.O. 12/24/2019 M47.22 Other spondylosis with radiculopathy, Morteza Hoffmann D.O. 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 12/24/2019 F33.9 Major depressive disorder, recurrent, Morteza Hoffmann D.O. unspecified 12/24/2019 M35.8 Other specified systemic involvement of Morteza Hoffmann D.O. connective tissue 12/24/2019 F41.1 Generalized anxiety disorder Morteza Hoffmann D.O. 12/24/2019 M99.03 Segmental and somatic dysfunction of lumbar Morteza Hoffmann D.O. region 12/24/2019 M99.04 Segmental and somatic dysfunction of sacral SopchakMorteza , D.O. region 12/24/2019 M99.00 Segmental and somatic dysfunction of head SopchakMorteza, D.O. region 12/24/2019 M99.01 Segmental and somatic dysfunction of cervical SopchakMorteza, D.O. region 12/24/2019 M99.08 Segmental and somatic dysfunction of rib cage SopchakMorteza, D.O. 12/24/2019 M99.02 Segmental and somatic dysfunction of thoracic SopchakMorteza, D.O. region 12/24/2019 M99.06 Segmental and somatic dysfunction of lower SopchakMorteza , D.O. extremity 12/24/2019 M99.05 Segmental and somatic dysfunction of pelvic SopzunildakMorteza , D.O. region 11/28/2019 B34.9 Viral infection, unspecified Renee Chapa, MARTHA 11/12/2019 R53.81 Other malaise Sahara Treviño MD 11/12/2019 Z68.38 Body mass index (BMI) 38.0-38.9, adult Sahara Treviño MD 09/27/2019 M54.5 Low back pain Liannejesus Leiva, P.A. 09/27/2019 M79.7 Fibromyalgia Lianne Leiva, P.A. 09/27/2019 Z79.899 Other correction (current) drug therapy Lianne Leiva P.A. 09/17/2019 M54.5 Low back pain Morteza Hoffmann D.O. 09/17/2019 M47.22 Other spondylosis with radiculopathy, SopMorteza rich, D.O. cervical region 09/17/2019 M79.7 Fibromyalgia Morteza Hoffmann D.O. 09/17/2019 F33.9 Major depressive disorder, recurrent, Morteza Hoffmann, D.O. unspecified 09/17/2019 M99.05 Segmental and somatic dysfunction of pelvic SopMorteza rich D.O. region 09/17/2019 M99.03 Segmental and somatic dysfunction of lumbar SopMorteza rich D.O. region 09/17/2019 M99.04 Segmental and somatic dysfunction of sacral SopMorteza rich D.O. region 09/17/2019 M99.00 Segmental and somatic dysfunction of head Sopchak, Morteza, D.O. region 09/17/2019 M99.02 Segmental and somatic dysfunction of thoracic Sopchak, Morteza, D.O. region 09/17/2019 M99.01 Segmental and somatic dysfunction of cervical Sopchak, Morteza, D.O. region 09/17/2019 M99.08 Segmental and somatic dysfunction of rib cage Sopchak, Morteza, D.O. 09/17/2019 M99.06 Segmental and somatic dysfunction of lower Sopchak, Morteza , D.O. extremity 08/08/2019 Z23 Encounter for immunization Sopchak, Morteza, D.O. 08/08/2019 M35.8 Other specified systemic involvement of SopMorteza rich, D.O. connective tissue 08/08/2019 F33.9 Major depressive disorder, recurrent, SopzunildakMorteza, D.O. unspecified 08/08/2019 F41.1 Generalized anxiety disorder SopzunildakDonavanon, D.O. 08/08/2019 M99.05 Segmental and somatic dysfunction of pelvic Sopchak, Morteza , D.O. region 08/08/2019 M99.03 Segmental and somatic dysfunction of lumbar Sopchak, Morteza , D.O. region 08/08/2019 M99.04 Segmental and somatic dysfunction of sacral Sopchak, Morteza , D.O. region 08/08/2019 M99.00 Segmental and somatic dysfunction of head Sopchak, Morteza, D.O. region 08/08/2019 M99.02 Segmental and somatic dysfunction of thoracic Sopchak, Morteza, D.O. region 08/08/2019 M99.01 Segmental and somatic dysfunction of cervical Sopchak, Morteza, D.O. region 08/08/2019 M99.08 Segmental and somatic dysfunction of rib cage Sopchak, Morteza, D.O. 08/08/2019 M99.06 Segmental and somatic dysfunction of lower Sopchak, Morteza , D.O. extremity 07/11/2019 R10.9 Unspecified abdominal pain Renee Chapa PA 07/11/2019 R11.0 Nausea Renee Chapa PA 07/11/2019 M35.8 Other specified systemic involvement of Renee Chapa, PA connective tissue 07/03/2019 R11.0 Nausea Morteza Hoffmann D.O. 07/03/2019 R10.9 Unspecified abdominal pain Morteza Hoffmann D.O. 07/03/2019 M35.8 Other specified systemic involvement of Morteza Hoffmann D.O. connective tissue 07/03/2019 F33.9 Major depressive disorder, recurrent, Morteza Hoffmann D.O. unspecified 07/03/2019 M47.22 Other spondylosis with radiculopathy, Morteza Hoffmann D.O. cervical region 07/03/2019 M48.02 Spinal stenosis, cervical region Morteza Hoffmann D.O. 07/03/2019 Z79.899 Other correction (current) drug therapy Morteza Hoffmann D.O. 07/03/2019 F41.1 Generalized anxiety disorder Morteza Hoffmann D.O. 07/03/2019 G57.11 Meralgia paresthetica, right lower limb Morteza Hoffmann D.O. 07/03/2019 M54.2 Cervicalgia Morteza Hoffmann D.O. 07/03/2019 M79.7 Fibromyalgia Morteza Hoffmann D.O. 07/03/2019 M51.36 Other intervertebral disc degeneration, Morteza Hoffmann D.O. lumbar region 07/03/2019 M06.09 Rheumatoid arthritis without rheumatoid Morteza Hoffamnn D.O. 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 Plan of Treatment No Information Available Functional Status Description No Information Available Mental Status Description No Information Available Referrals Description No Information Available
--- OUTSIDE RECORDS SUMMARY | 2019-12-25 22:06 | XMS REPORT ---
:1965 Author Organization [facility] Address [address] [place] [address] Care Team Providers Name Role Phone Amanda Almanza Unavailable Unavailable PROBLEMS Type Condition ICD9-CM Code [id number] Onset Condition SNOMED Code Code Dates Status Problem Irregular N92.6 Active 50546531 menstruation, unspecified Problem Subacute and N76.3 Active 123735787 chronic vulvitis Problem Menopausal and N95.1 Active 955943868 female climacteric states Problem Cystocele, midline N81.11 Active 972602368 Problem Family history of Z80.0 Active 827531551 malignant neoplasm of digestive organs Problem Deep dyspareunia N94.12 Active 791467871 Problem Postmenopausal N95.0 Active 25464678 bleeding Problem Leiomyoma of D25.9 Active 54054904 uterus, unspecified Problem Abnormal findings R93.8 Active 177818482 on diagnostic imaging of other specified body structures Problem Secondary N91.1 Active 808177311 amenorrhea ALLERGIES No Information ENCOUNTERS Encounter Location Date Diagnosis [facility] 103 14 Aug, [address] [facility], gynecological examination [place] [id number] (general) (routine) without abnormal findings Z01.419 ; Deep dyspareunia N94.12 and Family history of malignant neoplasm of digestive organs Z80.0 [facility] 103 20 Jul, 2019 Encounter for screening OBGYN [facility], mammogram for malignant [place] [id number] neoplasm of breast Z12.31 [facility] [address] [place], [place] [address]er Jun, [address] [place], [place] [id number] [place] [facility], [address] [place], [place] [id number] [place] [facility] 103 Aug, [place] [id number] [place] [facility] 103 Aug, [place] [id number] [place] [facility] May, [place] [id number] [place] [facility] 103 May, [place] [id number] [facility] May, Encounter for [facility], gynecological examination [place] [id number] (general) (routine) with abnormal findings Z01.411 ; Encounter for screening for malignant neoplasm of cervix Z12.4 ; Encounter for screening for malignant neoplasm of colon Z12.11 ; Encounter for screening mammogram for malignant neoplasm of breast Z12.31 ; Family history of malignant neoplasm of digestive organs Z80.0 ; Leiomyoma of uterus, unspecified D25.9 ; Secondary amenorrhea N91.1 ; Encounter for screening for infections with a predominantly sexual mode of transmission Z11.3 ; Cystocele, midline N81.11 and Encounter for screening for infections with a predominantly sexual mode of transmission Z11.3 [place] [facility] 103 May, Leiomyoma of uterus, [facility], unspecified D25.9 and [place] [id number] Abnormal findings on diagnostic imaging of other specified body structures R93.8 [facility] Dec, Irregular menstruation, [facility], unspecified N92.6 ; [place] [id number] Leiomyoma of uterus, unspecified D25.9 ; Secondary amenorrhea N91.1 and Abnormal findings on diagnostic imaging of other specified body structures R93.8 [facility] Dec, Irregular menstruation, [facility], unspecified N92.6 and [place] [id number] Leiomyoma of uterus, unspecified D25.9 [facility] 103 Sep, Irregular menstruation, [facility], unspecified N92.6 and [place] [id number] Leiomyoma of uterus, unspecified D25.9 [facility] 103 Sep, Irregular menstruation, [facility], unspecified N92.6 and [place] [id number] Leiomyoma of uterus, unspecified D25.9 [place] [facility] 103 May, Leiomyoma of uterus, [facility], unspecified D25.9 ; [place] [id number] Irregular menstruation, unspecified N92.6 and Family history of malignant neoplasm of digestive organs Z80.0 [facility] 103 May, Leiomyoma of uterus, [facility], unspecified D25.9 and [place] [id number] Postmenopausal bleeding N95.0 [place] [facility] [address] May, [facility], [place] [id number] [facility] 103 May, [address] for [facility], gynecological examination [place] [id number] (general) (routine) without abnormal findings Z01.419 ; Encounter for screening mammogram for malignant neoplasm of breast Z12.31 ; Menopausal and female climacteric states N95.1 ; Unspecified sexually transmitted disease A64 ; Family history of malignant neoplasm of digestive organs Z80.0 and Subacute and chronic vulvitis N76.3 [place] [facility] [address] March, [facility], [place] [id number] [facility] Jan, Irregular menstruation, [facility], unspecified N92.6 [place] [id number] [facility] [facility] 103 Jan, Irregular menstruation, OBGYN [facility], unspecified N92.6 [place] [id number] [facility] Jan, Irregular menstruation, OBGYN [facility], unspecified N92.6 [place] [id number] [facility] Dec, Irregular menstruation, OBGYN [facility], unspecified N92.6 and [place] [id number] Encounter for screening for infections with a predominantly sexual mode of transmission Z11.3 [facility] Dec, [place] [id number] [facility] Apr, Encounter for [facility], gynecological examination [place] [id number] (general) (routine) without abnormal findings Z01.419 and Encounter for screening mammogram for malignant neoplasm of breast Z12.31 [facility] 103 Oct, OBGYN [place] [id number] [facility] Jul, [place] [id number] [facility] Oct, ROUTINE RADIOCOMMUNICATIONS TECHNICIAN EXAMINATION OBGYN [facility], V72.31 ; SCREEN MAMMOGRAM [place] [id number] [facility] V76.12 ; Irregular bleeding NOS 626.4 and FAMILY HX-GI MALIGNANCY V16.0 [facility] 103 Sep, OBGYN [place] [id number] [facility] 103 Sep, Irregular bleeding NOS OBGYN [facility], 626.4 and FAMILY PLANNING [place] [id number] V25.09 [facility] [address] [facility] Jun, Irregular bleeding NOS OBGYN [address] [place], 626.4 and Levator syndrome [place] [id number] 564.6 [place] [address] May, [facility] [place], [place] [id number] [facility] [facility] 103 May, Irregular bleeding NOS OBGYN [facility], 626.4 and Levator syndrome [place] [id number] 564.6 [facility] [facility] 103 Apr, OBGYN [facility], [place] [id number] [facility] [facility] 103 Apr, Irregular bleeding NOS OBGYN [facility], 626.4 and Levator syndrome [place] [id number] 564.6 [facility] [facility] 103 Apr, Irregular bleeding NOS OBGYN [facility], 626.4 [place] [id number] [place] [facility] 103 Apr, Irregular bleeding NOS OBGYN [facility], 626.4 [place] [id number] [facility] [facility] 103 Apr, Irregular bleeding NOS OBGYN [facility], 626.4 [place] [id number] [facility] 103 March, [facility]BG[facility] [place] [id number] [facility] [facility] March, Irregular bleeding NOS OBGYN [facility], 626.4 [place] [id number] [place] [facility] 103 March, Irregular bleeding NOS OBGYN [facility], 626.4 [place] [id number] [facility] [facility] 103 March, OBGYN [facility] [place] [id number] [facility] [facility] 103 March, VAGINAL DISCHARGE 623.[address] [facility], and Irregular bleeding NOS [place] [id number] 626.4 [place] [facility] 103 Feb, VAGINAL DISCHARGE 623.5 ; OBGYN [facility], FOREIGN BDY VULVA/VAGINA [place] [id number] 939.2 and Dysuria 788.1 [place] [facility] 103 Jun, OBGYN [place], [place] [id number] [facility] 103 Jun, ROUTINE RADIOCOMMUNICATIONS TECHNICIAN EXAMINATION OBGYN [facility], V72.31 ; PAP SMEAR W/O RADIOCOMMUNICATIONS TECHNICIAN [place] [id number] EXAM V76.2 and SCREEN MAMMOGRAM NEC V76.12 [facility] 103 May, OBG[place] [id number] [facility] 103 Sep, [place] [id number] [facility] 103 Jul, OBG[place], [place] [id number] [facility] 103 Jul, [place], [place] [id number] [facility] 103 Jun, OBG[place], [place] [id number] [facility] 103 Jun, Suppression menstruation OBGYN [facility], 626.8 ; TEST [place] [id number] NEGATIVE V72.41 ; FAMILY PLANNING V25.09 and STD Screen V74.5 [facility] 103 May, OBGYN [place], [place] [id number] [facility] 103 May, [place] [id number] [facility] [place] [address] [facility] May, ROUTINE RADIOCOMMUNICATIONS TECHNICIAN EXAMINATION OBGYN [address] [place], V72.31 and PAP SMEAR W/O [place] [id number] RADIOCOMMUNICATIONS TECHNICIAN EXAM V76.2 [facility] Aug, OBGYN [place], [place] [id number] IMMUNIZATIONS No Known Immunizations SOCIAL HISTORY Never Assessed REASON FOR REFERRAL FUNCTIONAL STATUS PLAN OF CARE VITAL SIGNS MEDICATIONS No Known Medications PROCEDURES No Known procedures RESULTS No Results REASON FOR VISIT may 2019 Insurance Providers [facility] Member Patient Patient Patient Patient Patient Subscriber Subscriber Subscriber Group Insurance Plan Plan Plan Plan ID Relationship Address Phone Name Date of ID Name Date of No Type Insurance Insurance Insurance Coverage to Subscriber Address Phone Name Dates Lifetime [phone] Lifetime self Domi [id number] Benefit [place] [address] [place] [id number] MEDICAL (GENERAL) HISTORY Type Description Date Medical History asthma Medical History IBS Medical History h/o possible thyriod issue Medical History Fibromyalgia Medical History hyperlipidemia Medical History osteoarhtritis Medical History Undifferentiated connective tissue disease Medical History Precancerous colon polyp Medical History IBS symptoms Surgical History [place] [facility] 1988 Surgical History gastric sleeve 01/2013 Surgical History hysteroscopy D&C: EM polyp 05-15-14 Surgical History cervical disc removal, zain placed 01/05/17 Surgical History Colonoscopy and Endoscopy 07/19/2019 Hospitalization History child Hospitalization History see above
--- OUTSIDE RECORDS SUMMARY | 2019-12-25 22:06 | XMS REPORT ---
:1965 Author Name Iza Zavala Address [address] [place] [address] Care Team Providers Name Role Phone Iza Zavala Unavailable Unavailable PROBLEMS Type Condition ICD9-CM Code [id number] Onset Condition SNOMED Code Code Dates Status Problem Irregular N92.6 Active 48927769 menstruation, unspecified Problem Subacute and N76.3 Active 981339698 chronic vulvitis Problem Menopausal and N95.1 Active 626582038 female climacteric states Problem Cystocele, midline N81.11 Active 646562078 Problem Family history of Z80.0 Active 674449116 malignant neoplasm of digestive organs Problem Deep dyspareunia N94.12 Active 192584832 Problem Postmenopausal N95.0 Active 80090641 bleeding Problem Leiomyoma of D25.9 Active 09052679 uterus, unspecified Problem Abnormal findings R93.8 Active 629920990 on diagnostic imaging of other specified body structures Problem Secondary N91.1 Active 401761763 amenorrhea ALLERGIES Substance Reaction Event Type Date Status Lyrica hives Drug Allergy Aug, Active ENCOUNTERS Encounter Location Date Diagnosis [facility] 103 Aug, Encounter for OBGYN [facility], gynecological examination [place] [id number] (general) (routine) without abnormal findings Z01.419 ; Deep dyspareunia N94.12 and Family history of malignant neoplasm of digestive organs Z80.0 [facility] 103 Jul, Encounter for screening OBGYN [facility], mammogram for malignant [place] [id number] neoplasm of breast Z12.31 [facility] [address] [facility] [address], [address] [place], [place] [id number] [facility] [address] [place] [address] Jun, [address] [place], [place] [id number] [facility] Aug, [place] [id number] [facility] Aug, [place] [id number] [place] [facility] May, [place] [id number] [facility] May, [place] [id number] [facility] May, Encounter for [facility], gynecological examination [place] [id number] (general) (routine) with abnormal findings Z01.411 ; [...] a predominantly sexual mode of transmission Z11.3 [facility] May, Leiomyoma of uterus, [facility], unspecified D25.9 and [place] [id number] Abnormal findings on diagnostic imaging of other specified body structures R93.8 [facility] 103 Dec, Irregular menstruation, [facility], unspecified N92.6 ; [place] [id number] Leiomyoma of uterus, unspecified D25.9 ; Secondary amenorrhea N91.1 and Abnormal findings on diagnostic imaging of other specified body structures R93.8 [facility] 103 Dec, Irregular menstruation, [facility], unspecified N92.6 and [place] [id number] Leiomyoma of uterus, unspecified D25.9 [facility] 103 Sep, Irregular menstruation, [facility], unspecified N92.6 and [place] [id number] Leiomyoma of uterus, unspecified D25.9 [facility] 103 Sep, Irregular menstruation, [facility], unspecified N92.6 and [place] [id number] Leiomyoma of uterus, unspecified D25.9 [facility] 103 May, Leiomyoma of uterus, [facility], unspecified D25.9 ; [place] [id number] Irregular menstruation, unspecified N92.6 and Family history of malignant neoplasm of digestive organs Z80.0 [facility] May, Leiomyoma of uterus, [facility], unspecified D25.9 and [place] [id number] Postmenopausal bleeding N95.0 [facility] 103 May, [facility] [place] [id number] [facility] 103 May, Encounter for [facility], gynecological examination [place] [id number] (general) (routine) without abnormal findings Z01.419 ; Encounter for screening mammogram for malignant neoplasm of breast Z12.31 ; Menopausal and female climacteric states N95.1 ; Unspecified sexually transmitted disease A64 ; Family history of malignant neoplasm of digestive organs Z80.0 and Subacute and chronic vulvitis N76.3 [facility] March, [facility] [place] [id number] [facility] 103 Jan, Irregular menstruation, [facility], unspecified N92.6 [place] [id number] [facility] Jan, Irregular menstruation, OBGYN [facility], unspecified N92.6 [place] [id number] [facility] Jan, Irregular menstruation, OBGYN [facility], unspecified N92.6 [place] [id number] [facility] Dec, Irregular menstruation, OBGYN [facility], unspecified N92.6 and [place] [id number] Encounter for screening for infections with a predominantly sexual mode of transmission Z11.3 [facility] 103 Dec, OBGYN [place], [place] [id number] [facility] 103 Apr, [facility] examination [place] [id number] (general) (routine) without abnormal findings Z01.419 and Encounter for screening mammogram for malignant neoplasm of breast Z12.31 [facility] 103 Oct, OBGYN [place] [id number] [facility] Jul, [place] [id number] [facility] Oct, ROUTINE ENVIRONMENTAL SERVICES DIRECTOR EXAMINATION OBGYN [facility], V72.31 ; SCREEN MAMMOGRAM [place] [id number] NEC V76.12 ; Irregular bleeding NOS 626.4 and FAMILY HX-GI MALIGNANCY V16.0 [facility] 103 Sep, OBGYN [place] [id number] [facility] Sep, Irregular bleeding NOS OBGYN [facility], 626.4 and FAMILY PLANNING [place] [id number] V25.[address] Jun, Irregular bleeding NOS [address]BGYN [address] [place], 626.4 and Levator syndrome [place] [id number] 564.[address] [place] [address] May, [place], [place] [id number] [place] [facility] 103 May, Irregular bleeding NOS OBGYN [facility], 626.4 and Levator syndrome [place] [id number] 564.6 [facility] 103 Apr, OBGYN [facility], [place] [id number] [facility] 103 Apr, Irregular bleeding NOS OBGYN [facility], 626.4 and Levator syndrome [place] [id number] 564.6 [facility] 103 Apr, Irregular bleeding NOS OBGYN [facility], 626.4 [place] [id number] [place] [facility] 103 Apr, Irregular bleeding NOS OBGYN [facility], 626.4 [place] [id number] [place] [facility] 103 Apr, Irregular bleeding NOS OBGYN [facility], 626.4 [place] [id number] [facility] 103 March, OBGYN [place], [place] [id number] [facility] 103 March, Irregular bleeding NOS OBGYN [facility], 626.4 [place] [id number] [place] [facility] 103 March, Irregular bleeding NOS OBGYN [facility], 626.4 [place] [id number] [facility] 103 March, OBGYN [place], [place] [id number] [facility] 103 March, VAGINAL DISCHARGE 623.5 OBGYN [facility], and Irregular bleeding NOS [place] [id number] 626.4 [place] [facility] 103 Feb, VAGINAL DISCHARGE 623.5 ; OBGYN [facility], FOREIGN BDY VULVA/VAGINA [place] [id number] 939.2 and Dysuria 788.1 [facility] 103 Jun, OBGYN [place] [id number] [facility] Jun, ROUTINE ENVIRONMENTAL SERVICES DIRECTOR EXAMINATION OBGYN [facility], V72.31 ; PAP SMEAR W/O ENVIRONMENTAL SERVICES DIRECTOR [place] [id number] EXAM V76.2 and SCREEN MAMMOGRAM NEC V76.12 [facility] 103 May, OBGYN [place] [id number] [facility] Sep, OBG[place] [id number] [facility] Jul, OBG[place] [id number] [facility] 103 Jul, OBG[place], [place] [id number] [facility] Jun, [place] [id number] [facility] Jun, Suppression menstruation OBN [facility], 626.8 ; TEST [place] [id number] NEGATIVE V72.41 ; FAMILY PLANNING V25.09 and STD Screen V74.5 [facility] May, OBGYN [place] [id number] [facility] 103 May, OBG[place] [id number] [place] [address] [facility] May, ROUTINE ENVIRONMENTAL SERVICES DIRECTOR EXAM[facility] [address] [place], V72.31 and PAP SMEAR W/O [place] [id number] ENVIRONMENTAL SERVICES DIRECTOR EXAM V76.2 [facility] Aug, OBGYN [place], [place] [id number] IMMUNIZATIONS No Known Immunizations SOCIAL HISTORY Never Assessed REASON FOR REFERRAL FUNCTIONAL STATUS PLAN OF CARE Activity Details Follow Up 1 Year Reason: VITAL SIGNS Height 66 in 2019-08-20 Weight 240 - per pt lbs 2019-08-20 Blood pressure systolic 118 mm Hg 2019-08-20 Blood pressure diastolic 78 mm Hg 2019-08-20 MEDICATIONS Medication Instructions Dosage Frequency Start End Duration Status Date Date naproxen 500 mg orally 2 times a 1 tab(s) 12h Active day magnesium citrate orally once a 2 cap(s) 24h Active 125 mg day ondansetron 4 mg orally every 8 1 tab(s) 8h Active hours fish flaxseed oil orally QD 1 gel cap 24h Active simvastatin 20 mg orally once a 1 tab(s) 30 day(s) Active day (at bedtime) Vitamin D3 5000 orally once a 1 cap(s) 24h Active intl units day Flintstones chewed once a 1 tab(s) 24h 30 day(s) Active Multivitamins day Multiple Vitamins calcium citrate orally 2 times a 1 tab(s) 12h 30 day(s) Active 250 mg elemental day calcium tramadol 50 mg orally PRN 1 tab(s) Active meclizine 12.5 mg orally 3 times a 1 tab(s) 8h Active day escitalopram 10 orally once a 1 tab(s) 24h Active mg day clonazepam 0.5 mg orally 3 times a 1 tab(s) 8h 30 day(s) Active day tizanidine 2 mg orally every 8 2 tab(s) 8h 30 day(s) Active hours PROCEDURES No Known procedures RESULTS No Results REASON FOR VISIT annual Insurance Providers [facility] Patient Patient Patient Patient Patient Subscriber Subscriber Subscriber Group Insurance Plan Plan Plan Plan ID Relationship Address Phone Name Date of ID Name Date of No Type Insurance Insurance Insurance Coverage to Subscriber Address Phone Name Dates Lifetime [phone] Lifetime self Domi [id number] Benefit [place] [employer]it [employer] [phone] MEDICAL (GENERAL) HISTORY Type Description Date Medical History asthma Medical History IBS Medical History h/o possible thyriod issue Medical History Fibromyalgia Medical History hyperlipidemia Medical History osteoarhtritis Medical History Undifferentiated connective tissue disease Medical History Precancerous colon polyp Medical History IBS symptoms Surgical History [place] [facility] 1988 Surgical History gastric sleeve 01/2013 Surgical History hysteroscopy D&C: EM polyp 05-15-14 Surgical History cervical disc removal, zain placed 01/05/17 Surgical History Colonoscopy and Endoscopy 07/19/2019 Hospitalization History child Hospitalization History see above
--- OUTSIDE RECORDS SUMMARY | 2019-12-25 22:06 | XMS REPORT | Continuity of Care Document ---
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 Cream two times [...] Tablets Day Cranberry One Daily Unknown 06/25/2016 03190ht Capsules Simvastatin Take One Tablet 90tabs E78.0 [...] CPT Code Status Date Vaccine Lot # 54720 Given 08/08/2019 Influenza Virus Vaccine, Quadrivalent, Split, [id number] Preservative Free 84570 Given 11/09/2018 Prevnar 13 44198 Given 11/09/2018 Prevnar (Pneumococcal Conjugate) 47311 Given 08/07/2018 Influenza Virus Vaccine, Quadrivalent, Split, Im Use 28783 Given 08/02/2018 Influenza Virus Vaccine, Quadrivalent, Split, Preservative Free 03691 Given 09/07/2017 Influenza Virus Vaccine, Quadrivalent, Split, Preservative Free 11317 Given 08/28/2016 Influenza Virus Vaccine, Quadrivalent, Split, [id number] Preservative Free 62809 Given 08/24/2014 Flu, Split Virus 3Yrs 11934 Given 09/14/2012 Pneumococcal Immunization 14404 Given 08/17/2011 Adacel or Boostrix, TDaP 28286 Given 06/21/2011 Adacel or Boostrix, TDaP 00818 Refused 01/04/2014 Flu, Split Virus 3Yrs Vital Signs Date Vital Result Comment 11/28/2019 10:58am BP Systolic 108 mmHg BP Diastolic 66 mmHg Heart Rate 58 /min O2 % BldC Oximetry 98 % Body Temperature 98.2 F 11/12/2019 1:57pm BP Systolic 114 mmHg BP Diastolic 68 mmHg Body Temperature 97.9 F Height 65.5 inches 5'5.50" Weight 236.50 lb BMI (Body Mass Index) 38.8 kg/m2 Results Test Acquired Date Facility Test Result H/L Range Note Influenza A & B 11/28/2019 [facility] Flu AB (SEE NOTE) 1 Request [phone] Disclaimer Influenza A Molecular NEGATIVE Negative Influenza B Molecular NEGATIVE Negative 2 CBC Auto Diff 11/12/2019 [facility] White Blood Count 2.7 10^3/uL Low 3.5-10.8 [phone] Red Blood Count 4.71 10^6/uL Normal 3.70-4.87 [...] Cells % 0.1 Comp Metabolic Panel 11/12/2019 [facility] Sodium 141 mmol/L Normal 135-145 [phone] Potassium 4.3 mmol/L Normal 3.5-5.0 Chloride 107 [...] Egfr Non- 92.1 >60 Egfr 111.4 >60 3 Laboratory test finding 11/12/2019 [facility] Ferritin 57.1 ng/mL Normal 11-307 4 [phone] Erythrocyte Sed Rate 8 mm/Hr Normal 0-29 5 CRP High Sensitivity 0.89 mg/L <2.00 6 Laboratory test 09/27/2019 [facility] Erythrocyte Sed 10 mm/Hr Normal 0-29 finding [phone] Rate C Reactive Protein 1.47 mg/L Normal <8.01 Comp Metabolic Panel 08/08/2019 [facility] Sodium 141 mmol/L Normal 135-145 [phone] Potassium 4.1 mmol/L Normal 3.5-5.0 Chloride 108 [...] Egfr Non- 95.7 >60 Egfr 115.8 >60 7 Laboratory test 08/08/2019 [facility] C Reactive 1.10 mg/L Normal < 8.01 finding [phone] Protein TSH (Thyroid Stim Horm) 1.66 mcIU/mL Normal 0.34-5.60 CBC Auto Diff 08/08/2019 [facility] White Blood Count 2.3 10^3/uL Low 3.5-10.8 [phone] Red Blood Count 4.57 10^6/uL Normal 3.70-4.87 [...] Blood Cells % 0.0 Laboratory test 08/08/2019 [facility] Erythrocyte Sed 13 mm/Hr Normal 0-29 finding [phone] Rate Aldolase 6.3 U/L <7.7 8 Laboratory test 07/19/2019 [facility] Clotest SEE RESULT 9, 10 finding [phone] BELOW Laboratory test 07/19/2019 [facility] Surgical SEE RESULT 11, 12 finding [phone] Pathology Order BELOW O P: 07/04/2019 [facility] O P: SEE RESULT 13 Giardia/Cryptospor [phone] Giardia/Cryptosp BELOW Screen or Screen Laboratory test 07/04/2019 [facility] C Difficile B SEE RESULT 14 finding [phone] PCR BELOW Ova & Parasites 07/04/2019 [facility] Parasitic Exam, See Comment 15 Full [phone] Result Urinalysis Profile 07/04/2019 [facility] Urine Color Domi [phone] Urine Appearance Turbid Urine Specific [place] 1.018 Normal 1.010-1.030 Urine pH 8.0 Normal 5-9 Urine Urobilinogen Negative Negative Urine Ketones Trace Abnormal Negative Urine Protein Negative Negative Urine Leukocytes Negative Negative Urine Blood Negative Negative * * Abnormal Negative 16 Urine Nitrite Negative Negative Urine Bilirubin Negative Negative Urine Glucose Negative Negative CBC Auto Diff 07/04/2019 [facility] White Blood Count 3.2 10^3/uL Low 3.5-10.8 [phone] Red Blood Count 4.78 10^6/uL Normal 3.70-4.87 [...] Cells % 0.1 Comp Metabolic Panel 07/04/2019 [facility] Sodium 140 mmol/L Normal 135-145 [phone] Potassium 4.1 mmol/L Normal 3.5-5.0 Chloride 108 [...] Egfr Non- 86.4 >60 Egfr 104.6 >60 17 Laboratory test 07/04/2019 [facility] Magnesium 1.9 mg/dL Normal 1.9- 2.7 finding [phone] Lipase 25 U/L Normal 11.0-82.0 C Reactive Protein < 1.00 mg/L Normal <8.01 Lactic Acid 0.9 mmol/L Normal 0.5-2.0 18 1 Suboptimal collection technique may reduce sensitivity of test. Refer to the [facility] Test Catalog for collection information: [email or web address] As with all diagnostic procedures, the laboratory results obtained should be used in conjunction with other clinical information available to the physician, including confirmation by another method, as applicable. 2 Pantograph Setter: [id number] 3 Because ethnic data is not always readily [...] 15-29 5 Kidney failure <15 (or dialysis) 4 FASTING 5 FASTING 6 FASTING 7 Because ethnic data is not always readily [...] 15-29 5 Kidney failure <15 (or dialysis) 8 Test Performed by: [place] [address] Mental Health Clinician: Nicanor Walls M.D. Ph.D.; CLIA# [id number] 9 [id number] 10 SEE RESULT BELOW Name: LUCÍA STEVENSON Jory : [address]: Alli Spicer MD Acct: [id number] Unit: [id number] AGE: 53 Location: [facility] Re07/19/19 SEX: F Status: DEP REF SPEC: [id number] CLAUDINE: 07/19/19-[address] [facility] [address]: Alli Spicer MD REQ: [id number] RECD: 07/19/19 STATUS: OSITO JEAN DR: Morteza Hoffmann DO _ SOURCE: GAS ANTRUM SPDES: ORDERED: Clotest COMMENTS: [id number] Procedure Result Reported Site Clotest Final 07/20/19741 ML Clotest Negative * ML - Main Lab . END OF REPORT DEPARTMENT OF PATHOLOGY, [address] [place] [address] Ben Matthews M.D. Director [facility] # [id number] 11 [id number] 12 SEE RESULT BELOW Name: LUCÍA STEVENSON : [address]: Alli Spicer MD Acct: [id number] Unit: [id number] AGE: 53 Location: [facility] Re07/19/19 SEX: F Status: DEP REF SPEC: [id number] CLAUDINE: 07/19/19-[address]: Alli Spicer MD REQ: [id number] RECD: 07/19/19 STATUS: JOYCE JEAN DR: Morteza Hoffmann DO _ ORDERED: LEVEL 4/2 COMMENTS: [id number] FINAL DIAGNOSIS 1. Esophagus, random, biopsy: -- [...] 1304 END OF REPORT DEPARTMENT OF PATHOLOGY, [address] [place] [address] Ben Matthews M.D. Director [facility] # [id number] 13 SEE RESULT BELOW Name: CRAYLLUCÍA : [address]: Brandon Sanchez MD Acct: [id number] Unit: [id number] AGE: 53 Location: ED Re07/04/19 SEX: F Status: DEP ER SPEC: [id number] CLAUDINE: 07/04/[address]: Adela THOMAS REQ: [id number] RECD: 07/04/19 STATUS: OSITO JEAN DR: Brandon [...] the test and are not recommended. * - Main Lab . END OF REPORT DEPARTMENT OF PATHOLOGY, [address] [place] [address] Ben Matthews M.D. Director [facility] # [id number] 14 SEE RESULT BELOW Name: LUCÍA STEVENSON : [address]: Brandon Sanchez MD Acct: [id number] Unit: [id number] AGE: 53 Location: ED Re07/04/19 SEX: F Status: DEP ER SPEC: [id number] CLAUDINE: 07/04/[address]: Adela THOMAS REQ: [id number] RECD: 07/04/19 STATUS: OSITO JEAN DR: Brandon Hoffmann DO _ SOURCE: STOOL SPDESC: ORDERED: C. diff PCR, Stool Culture Procedure Result Reported Site [...] . END OF REPORT DEPARTMENT OF PATHOLOGY, [address] [place] [address] Ben Matthews M.D. Director [facility] # [id number] 15 SOURCE: STOOL PARASITIC EXAMINATION FINAL No parasites seen. Cryptosporidium, Cyclospora, and microsporidia are not readily detected by this method. Single negative specimen does not rule out parasitic infection. Test Performed by: [facility] - [address] [address] 16 *Ascorbic acid is present which may interfere with detection of blood. 17 Because ethnic data is not always readily [...] 15-29 5 Kidney failure <15 (or dialysis) 18 [facility] Severe Sepsis and Septic Shock Management Bundle Measure requires all lactic acids initially measuring >2.0 mmol/L be repeated. Procedures Date Code Description Status 09/17/2019 71557 Omt 7-8 Body Regions Completed 08/08/2019 76354 Omt 7-8 Body Regions Completed 07/19/2019 38285229 Colonoscopy Completed 06/15/2019 27575 Omt 7-8 Body Regions Completed Medical Devices Description No Information Available Encounters Type Date Location Provider Dx Diagnosis Office Visit 11/28/2019 Main Office Renee Chapa PA B34.9 Viral infection, 11:00a unspecified Office Visit 11/12/2019 Main Office Sahara Treviño, R53.81 Other malaise 2:00p Z68.38 Body mass index (BMI) 38.0-38.9, adult Office Visit 09/27/2019 10:20a Main Office Sarah Fragoso M54.5 Low back pain M79.7 Fibromyalgia Z79.899 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 M54.5 Low back pain M47.22 Other [...] Office Visit 08/08/2019 2:30p Main Office Morteza Hoffmann, Z23 Encounter for D.O. 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 shoulder M25.512 Pain in left shoulder M79.601 Pain in right arm M79.641 Pain in right hand M79.642 Pain in left hand M79.604 Pain in right leg M79.605 Pain in left leg M79.671 Pain in right foot M79.672 Pain in left foot M35.8 Other specified systemic involvement of connective tissue F33.9 Major depressive disorder, recurrent, unspecified M47.22 Other spondylosis with radiculopathy, cervical region M48.02 Spinal stenosis, cervical region Z79.899 Other snf (current) drug therapy F41.1 Generalized anxiety disorder M99.05 Segmental and [...] Segmental and somatic dysfunction of lower extremity Z79.52 senior living (current) use of systemic steroids M06.09 Rheumatoid arthritis w/o rheumatoid factor, multiple sites M51.36 Other intervertebral disc degeneration, lumbar region G57.11 Meralgia paresthetica, right lower limb M54.2 Cervicalgia M79.7 Fibromyalgia Assessments Date Code Description Provider 11/28/2019 B34.9 Viral infection, unspecified Renee Chapa PA 11/12/2019 R53.81 Other malaise Sahara Treviño MD 11/12/2019 Z68.38 Body mass index (BMI) 38.0-38.9, adult Sahara Treviño MD 09/27/2019 M54.5 Low back pain Francine FragosoALouis 09/27/2019 M79.7 Fibromyalgia Kash Fragoso.ALouis 09/27/2019 Z79.899 Other snf (current) drug therapy Francine FragosoALouis 09/17/2019 M54.5 Low back pain Morteza Hoffmann D.O. 09/17/2019 M47.22 Other spondylosis with radiculopathy, SopDonavan richon, D.O. cervical region 09/17/2019 M79.7 Fibromyalgia Sopchak Morteza, D.O. 09/17/2019 F33.9 Major depressive disorder, recurrent, SopzunildakDonavanon, D.O. unspecified 09/17/2019 M99.05 Segmental and somatic dysfunction of pelvic Sopchak, Morteza , D.O. region 09/17/2019 M99.03 Segmental and somatic dysfunction of lumbar Sopchak, Morteza , D.O. region 09/17/2019 M99.04 Segmental and somatic dysfunction of sacral Sopchak, Morteza , D.O. region 09/17/2019 M99.00 Segmental and somatic dysfunction of head Sopchak, Morteza, D.O. region 09/17/2019 M99.02 Segmental and somatic dysfunction of thoracic Sopchak, Morteza, D.O. region 09/17/2019 M99.01 Segmental and somatic dysfunction of cervical Sopchak, Morteza, D.O. region 09/17/2019 M99.08 Segmental and somatic dysfunction of rib cage Sopchak, Morteza, D.O. 09/17/2019 M99.06 Segmental and somatic dysfunction of lower SopchakDonavanon , D.O. extremity 08/08/2019 Z23 Encounter for immunization Sopzunildak, Morteza, D.O. 08/08/2019 M35.8 Other specified systemic involvement of SopDonavan richon, D.O. connective tissue 08/08/2019 F33.9 Major depressive disorder, recurrent, SopzunildakDonavanon, D.O. unspecified 08/08/2019 F41.1 Generalized anxiety disorder Sopzunildak Morteza, D.O. 08/08/2019 M99.05 Segmental and somatic dysfunction of pelvic Sopchak, Morteza , D.O. region 08/08/2019 M99.03 Segmental and somatic dysfunction of lumbar Sopchak, Morteza , D.O. region 08/08/2019 M99.04 Segmental and somatic dysfunction of sacral Sopchak, Morteza , D.O. region 08/08/2019 M99.00 Segmental and somatic dysfunction of head Sopchak, Morteza, D.O. region 08/08/2019 M99.02 Segmental and somatic dysfunction of thoracic Sopchak, Morteza, D.OLouis region 08/08/2019 M99.01 Segmental and somatic dysfunction of cervical Morteza Hoffmann D.O. region 08/08/2019 M99.08 Segmental and somatic dysfunction of rib cage Morteza Hoffmann D.OLouis 08/08/2019 M99.06 Segmental and somatic dysfunction of lower Morteza Hoffmann D.O. extremity 07/11/2019 R10.9 Unspecified abdominal pain Renee Chapa PA 07/11/2019 R11.0 Nausea Renee Chapa PA 07/11/2019 M35.8 Other specified systemic involvement of Renee Chapa PA connective tissue 07/03/2019 R11.0 Nausea Morteza Hoffmann D.O. 07/03/2019 R10.9 Unspecified abdominal pain Morteza Hoffmann D.O. 07/03/2019 M35.8 Other specified systemic involvement of Morteza Hoffmann D.OLouis connective tissue 07/03/2019 F33.9 Major depressive disorder, recurrent, Morteza Hoffmann D.O. unspecified 07/03/2019 M47.22 Other spondylosis with radiculopathy, Morteza Hoffmann D.O. cervical region 07/03/2019 M48.02 Spinal stenosis, cervical region Morteza Hoffmann D.O. 07/03/2019 Z79.899 Other snf (current) drug therapy Morteza Hoffmann D.O. 07/03/2019 F41.1 Generalized anxiety disorder Morteza Hoffmann D.OLouis 07/03/2019 G57.11 Meralgia paresthetica, right lower limb Morteza Hoffmann D.OLouis 07/03/2019 M54.2 Cervicalgia Morteza Hoffmann D.O. 07/03/2019 M79.7 Fibromyalgia Morteza Hoffmann D.O. 07/03/2019 M51.36 Other intervertebral disc degeneration, Morteza Hoffmann D.OLouis lumbar region 07/03/2019 M06.09 Rheumatoid arthritis without rheumatoid Morteza Hoffmann D.O. factor, multiple sit 07/03/2019 Z79.52 desktop specialist (current) use of systemic steroids Morteza Hoffmann D.O. 06/15/2019 M25.511 Pain in right shoulder Morteza Hoffmann D.O. 06/15/2019 M25.512 Pain in left shoulder Morteza Hoffmann D.O. 06/15/2019 M79.601 Pain in right arm Morteza Hoffmann D.O. 06/15/2019 M79.641 Pain in right hand TahiraMorteza D.O. 06/15/2019 M79.642 Pain in left hand Tahira Darien Pro.O. 06/15/2019 M79.604 Pain in right leg Morteza Hoffmann D.O. 06/15/2019 M79.605 Pain in left leg Morteza Hoffmann D.O. 06/15/2019 M79.671 Pain in right foot Morteza Hoffmann D.O. 06/15/2019 M79.672 Pain in left foot ThiencarlineMorteza D.O. 06/15/2019 M35.8 Other specified systemic involvement of Morteza Hoffmann D.O. connective tissue 06/15/2019 F33.9 Major depressive disorder, recurrent, Morteza Hoffmann D.O. unspecified 06/15/2019 M47.22 Other spondylosis with radiculopathy, Morteza Hoffmann D.O. cervical region 06/15/2019 M48.02 Spinal stenosis, cervical region Morteza Hoffmann D.O. 06/15/2019 Z79.899 Other snf (current) drug therapy Morteza Hoffmann D.O. 06/15/2019 F41.1 Generalized anxiety disorder Morteza Hoffmann D.O. 06/15/2019 M99.05 Segmental and somatic dysfunction of pelvic Morteza Hoffmann D.O. region 06/15/2019 M99.03 Segmental and somatic dysfunction of lumbar Morteza Hoffmann D.O. region 06/15/2019 M99.04 Segmental and somatic dysfunction of sacral Morteza Hoffmann D.O. region 06/15/2019 M99.00 Segmental and somatic dysfunction of head Morteza Hoffmann D.O. region 06/15/2019 M99.02 Segmental and somatic dysfunction of thoracic Morteza Hoffmann D.O. region 06/15/2019 M99.01 Segmental and somatic dysfunction of cervical Morteza Hoffmann D.O. region 06/15/2019 M99.08 Segmental and somatic dysfunction of rib cage Morteza Hoffmann D.O. 06/15/2019 M99.06 Segmental and somatic dysfunction of lower Morteza Hoffmann D.O. extremity 06/15/2019 Z79.52 desktop specialist (current) use of systemic steroids Morteza Hoffmann D.O. 06/15/2019 M06.09 Rheumatoid arthritis without rheumatoid Morteza Hoffmann D.O. factor, multiple sit 06/15/2019 M51.36 Other intervertebral disc degeneration, Morteza Hoffmann D.O. lumbar region 06/15/2019 G57.11 Meralgia paresthetica, right lower limb Morteza Hoffmann D.O. 06/15/2019 M54.2 Cervicalgia Morteza Hoffmann D.O. 06/15/2019 M79.7 Fibromyalgia Morteza Hoffmann D.O. Plan of Treatment Future Appointment(s):12/24/2019 4:45 pm - Morteza Hoffmann D.O. at Main [id number]/27/2019 - Sarah FragosoM54.5 Low back painM79.7 FibromyalgiaNew Medication:Prednisone 20 mg - 2 pills for 3 days then 1 pill for 3 days 1/2 pill for 4 days.Z79.899 Other snf (current) drug therapy Functional Status Description No Information Available Mental Status Description No Information Available Referrals Description No Information Available
--- OUTSIDE RECORDS SUMMARY | 2019-12-25 22:06 | XMS REPORT | Continuity of Care Document ---
:1965 External Reference #:[id number] Author Name Sahara Treviño MD Address [address] [place] [address] Care Team Providers Name Role Phone HCP given Care Team Information Pharmacy Technician Program Director Unavailable [facility] [employer] Lathe Operator [facility] - Care Team Information Pharmacy Technician Program Director Obstetrics & Gynecology Problems Active Problems Provider [...] Use Denies Drug Use Smoking Status Reviewed: 11/14/19 Non Smoker / No Tobacco Exercise Type/Frequency Exercises sporadically Sun Exposure Does not use sunscreen Seat Belt/Car Seat always uses seat belt Allergies, Adverse Reactions, Alerts Active Allergies Reaction Severity Comments Date Lyrica hives 12/11/2012 Medications Active Medications SIG Qnty Indications Ordering Date Provider Fluocinonide apply bid Unknown 11/08/2019 0.05% Ointment Fluocinonide apply every kang Unknown 11/08/2019 0.05% Solution Prednisone 2 pills for 3 11tabs M79.7 Brian Farias, 09/27/2019 20mg Tablets days then 1 pill M.D. for 3 days 1/2 pill for 4 days. Triamcinolone apply thin layer 15gm Morteza Hoffmann, [...] 06/01/2018 2mg as needed for Capsules spasms Fish Oil [place]-3 one po daily Unknown 05/10/2018 1000mg Capsules Vitamin D 3 po daily Unknown 05/10/2018 Vitamin B one, 2x's a week Unknown 05/10/2018 Calcium one po daily Unknown 05/10/2018 Nystatin apply topically 30gm Morteza Hoffmann, 04/29/2018 [id number]/GM to affected area D.O. Cream two times [...] Tablets Day Cranberry One Daily Unknown 06/25/2016 [id number] Capsules Simvastatin Take One Tablet 90tabs E78.0 Morteza Hoffmann, 08/23/2013 20mg By Mouth Every D.O. Tablets Day Orencia monthly Unknown 250mg Solution Rec Medications Administered in Office Medication SIG Qnty Indications Ordering Provider Date injection, kenalog, 10 mg Morteza Hoffmann D.O. 06/02/2018 Injection SC/Im Injections Morteza Hoffmann D.O. 06/02/2018 Injection injection, kenalog, 10 mg Morteza Hoffmann D.O. 06/18/2017 Injection Immunizations CPT Code Status Date Vaccine Lot # [id number] Given 08/08/2019 Influenza Virus Vaccine, Quadrivalent, Split, [id number] Preservative Free 24634 Given 11/09/2018 Prevnar 13 55536 Given 11/09/2018 Prevnar (Pneumococcal Conjugate) 84004 Given 08/07/2018 Influenza Virus Vaccine, Quadrivalent, Split, [place] Use 82565 Given 08/02/2018 Influenza Virus Vaccine, Quadrivalent, Split, Preservative Free 56367 Given 09/07/2017 Influenza Virus Vaccine, Quadrivalent, Split, Preservative Free 70524 Given 08/28/2016 Influenza Virus Vaccine, Quadrivalent, Split, [id number] Preservative Free 09697 Given 08/24/2014 Flu, Split Virus 3Yrs 70055 Given 09/14/2012 Pneumococcal Immunization 15078 Given 08/17/2011 Adacel or Boostrix, TDaP 55870 Given 06/21/2011 Adacel or Boostrix, TDaP 89795 Refused 01/04/2014 Flu, Split Virus 3Yrs Vital Signs Date Vital Result Comment 11/12/2019 1:57pm BP Systolic 114 mmHg BP Diastolic 68 mmHg Body Temperature 97.9 F Height 65.5 inches 5'5.50" Weight 236.50 lb BMI (Body Mass Index) 38.8 kg/m2 09/27/2019 11:25am BP Systolic 126 mmHg BP Diastolic 84 mmHg Body Temperature 98.2 F Results Test Acquired Date Facility Test Result H/L Range Note CBC Auto Diff 11/12/2019 [facility] White Blood 2.7 10^3/uL Low 3.5- 10.8 [phone] Count Red Blood Count 4.71 10^6/uL Normal 3.70-4.87 [...] Cells % 0.1 Comp Metabolic Panel 11/12/2019 [facility] Sodium 141 mmol/L Normal 135-145 [phone] Potassium 4.3 mmol/L Normal 3.5-5.0 Chloride 107 [...] Egfr Non- 92.1 >60 Egfr 111.4 >60 1 Laboratory test finding 11/12/2019 [facility] Ferritin 57.1 ng/mL Normal 11-307 2 [phone] Erythrocyte Sed Rate 8 mm/Hr Normal 0-29 3 CRP High Sensitivity 0.89 mg/L <2.00 4 Laboratory test 09/27/2019 [facility] Erythrocyte Sed 10 mm/Hr Normal 0-29 finding [phone] Rate C Reactive Protein 1.47 mg/L Normal <8.01 Comp Metabolic Panel 08/08/2019 [facility] Sodium 141 mmol/L Normal 135-145 [phone] Potassium 4.1 mmol/L Normal 3.5-5.0 Chloride 108 [...] Egfr Non- 95.7 >60 Egfr 115.8 >60 5 Laboratory test 08/08/2019 [facility] C Reactive 1.10 mg/L Normal < 8.01 finding [phone] Protein TSH (Thyroid Stim Horm) 1.66 mcIU/mL Normal 0.34-5.60 CBC Auto Diff 08/08/2019 [facility] White Blood Count 2.3 10^3/uL Low 3.5-10.8 [phone] Red Blood Count 4.57 10^6/uL Normal 3.70-4.87 [...] Blood Cells % 0.0 Laboratory test 08/08/2019 [facility] Erythrocyte Sed 13 mm/Hr Normal 0-29 finding [phone] Rate Aldolase 6.3 U/L <7.7 6 Laboratory test 07/19/2019 [facility] Surgical SEE RESULT 7, 8 finding [phone] Pathology BELOW Order Laboratory test 07/19/2019 [facility] Clotest SEE RESULT 9, 10 finding [phone] BELOW Laboratory test 07/04/2019 [facility] Magnesium 1.9 mg/dL Normal 1.9- 2 finding [phone] .[phone] Lipase 25 U/L Normal 11.0-82.0 C Reactive Protein < 1.00 mg/L Normal <8.01 Lactic Acid 0.9 mmol/L Normal 0.5-2.0 11 Comp Metabolic Panel 07/04/2019 [facility] Sodium 140 mmol/L Normal 135-145 [phone] Potassium 4.1 mmol/L Normal 3.5-5.0 Chloride 108 [...] Egfr Non- 86.4 >60 Egfr 104.6 >60 12 CBC Auto Diff 07/04/2019 [facility] White Blood Count 3.2 10^3/uL Low 3.5-10.8 [phone] Red Blood Count 4.78 10^6/uL Normal 3.70-4.87 [...] % Nucleated Red Blood Cells % 0.1 Urinalysis Profile 07/04/2019 [facility] Urine Color Domi [phone] Urine Appearance Turbid Urine Specific Dexter 1.018 Normal 1.010-1.030 Urine pH 8.0 Normal 5-9 Urine Urobilinogen Negative Negative Urine Ketones Trace Abnormal Negative Urine Protein Negative Negative Urine Leukocytes Negative Negative Urine Blood Negative Negative * * Abnormal Negative 13 Urine Nitrite Negative Negative Urine Bilirubin Negative Negative Urine Glucose Negative Negative Ova & Parasites 07/04/2019 [facility] Parasitic Exam, See Comment 14 Full [phone] Result Laboratory test 07/04/2019 [facility] C Difficile B SEE RESULT 15 finding [phone] PCR BELOW O P: 07/04/2019 [facility] O P: SEE RESULT 16 Giardia/Cryptospor [phone] Giardia/Cryptosp BELOW Screen or Screen Lab Results 05/23/2019 N2N/CCD Import C Reactive 1.35 mg/L 17, 18 Protein Sodium 142 mmol/L 135-145 Potassium 3.9 mmol/L 3.5-5 Chloride 107 mmol/L 101-111 Co2 Carbon Dioxide 29 mmol/L 22-32 Anion Gap 6 mmol/L 2-11 Glucose 100 mg/dL 70-100 Blood Urea Nitrogen 21 mg/dL 6-24 Creatinine 0.74 mg/dL 0.51-0.95 BUN/Creatinine Ratio 28.4 1 High 8-20 Calcium 9.0 mg/dL 8.6-10.3 Total Protein 5.8 g/dL Low 6.4-8.9 Albumin 3.8 g/dL 3.2-5.2 Globulin 2.0 g/dL 2-4 Albumin/Globulin Ratio 1.9 1 1-3 Total Bilirubin 0.60 mg/dL 0.2-1 Alkaline Phosphatase 77 U/L 34-104 Alt 19 U/L 7-52 Ast 20 U/L 13-39 Egfr Non- 82.4 1 Egfr 99.7 1 19 Lab Results 05/23/2019 N2N/CCD Import Sodium 142 mmol/L 135-145 Potassium 3.9 mmol/L 3.5-5 Chloride 107 mmol/L 101-111 Co2 Carbon Dioxide 29 mmol/L 22-32 Anion Gap 6 mmol/L 2-11 Glucose 100 mg/dL 70-100 Blood Urea Nitrogen 21 mg/dL 6-24 Creatinine 0.74 mg/dL 0.51-0.95 BUN/Creatinine Ratio 28.4 1 High 8-20 Calcium 9.0 mg/dL 8.6-10.3 Total Protein 5.8 g/dL Low 6.4-8.9 Albumin 3.8 g/dL 3.2-5.2 Globulin 2.0 g/dL 2-4 Albumin/Globulin Ratio 1.9 1 1-3 Total Bilirubin 0.60 mg/dL 0.2-1 Alkaline Phosphatase 77 U/L 34-104 Alt 19 U/L 7-52 Ast 20 U/L 13-39 Egfr Non- 82.4 1 Egfr 99.7 1 20 CBC Auto Diff 05/23/2019 N2N/CCD Import White Blood Count 2.9 10^3/uL Low 3.5-10.8 Red Blood Count 4.47 10^6/uL 3.7-4.87 Hemoglobin 13.9 g/dL 12-16 Hematocrit 40 % 35-47 Mean Corpuscular Volume 88 fL 80-97 Mean Corpuscular Hemoglobin 31 pg 27-31 Mean Corpuscular HGB Conc 35 g/dL 31-36 Red Cell Distribution Width 14 % 10-15 Platelet Count 117 10^3/uL Low 150-450 Mean Platelet Volume 8.7 fL 7.4-10.4 Abs Neutrophils 1.3 10^3/uL Low 1.5-7.7 Abs Lymphocytes 1.2 10^3/uL 1-4.8 Abs Monocytes 0.3 10^3/uL 0-0.8 Abs Eosinophils 0.1 10^3/uL 0-0.6 Abs Basophils 0.0 10^3/uL 0-0.2 Abs Nucleated RBC 0.0 10^3/uL Granulocyte % 44.5 % Lymphocyte % 42.5 % Monocyte % 10.3 % Eosinophil % 1.9 % Basophil % 0.8 % Nucleated Red Blood Cells % 0.4 1 Lab Results 05/23/2019 N2N/CCD Import Erythrocyte Sed Rate 9 mm/Hr 0-29 21 1 Because ethnic data is not always [...] 5 Kidney failure <15 (or dialysis) 2 FASTING 3 FASTING 4 FASTING 5 Because ethnic data is not always readily [...] 15-29 5 Kidney failure <15 (or dialysis) 6 Test Performed by: [address] [address] Elevator Operator Freight: Nicanor Walls M.D. Ph.D.; CLIA# [id number] 8 SEE RESULT BELOW Name: LUCÍA HUTSON : [address]: Alli Spicer MD Acct: [id number] Unit: [id number] AGE: 53 Location: ENDOC Re07/19/19 SEX: F Status: DEP REF SPEC: [id number] CLAUDINE: 07/19/19-[address]: Alli Spicer MD REQ: [id number] RECD: 07/19/19-1620 STATUS: JOYCE JEAN DR: Morteza Hoffmann DO _ ORDERED: LEVEL 4/2 COMMENTS: [id number] FINAL DIAGNOSIS 1. Esophagus, random, biopsy: -- [...] 1304 END OF REPORT DEPARTMENT OF PATHOLOGY, [address] [place] [address] Ben Matthews M.D. Director [facility] # [id number] 10 SEE RESULT BELOW Name: LUCÍA HUTSON : [address]: Alli Spicer MD Acct: [id number] Unit: [id number] AGE: 53 Location: ENDOCEC Re07/19/19 SEX: F Status: DEP REF SPEC: [id number] CLAUDINE: 07/19/19-[address]: Alli Spicer MD REQ: [id number] RECD: 07/19/19684 STATUS: OSITO JEAN DR: Morteza Hoffmann DO _ SOURCE: GAS ANTRUM SPDESC: ORDERED: Clotest COMMENTS: [id number] Procedure Result Reported Site Clotest Final 07/20/19- 741 ML Clotest Negative * ML - Main Lab . END OF REPORT DEPARTMENT OF PATHOLOGY, [address] [place] [address] Ben Matthews M.D. Director [facility] # [id number] 11 [facility] Severe Sepsis and Septic Shock Management Bundle Measure requires all lactic acids initially measuring >2.0 mmol/L be repeated. 12 Because ethnic data is not always readily [...] 15-29 5 Kidney failure <15 (or dialysis) 13 *Ascorbic acid is present which may interfere with detection of blood. 14 SOURCE: STOOL PARASITIC EXAMINATION FINAL No parasites seen. Cryptosporidium, Cyclospora, and microsporidia are not readily detected by this method. Single negative specimen does not rule out parasitic infection. Test Performed by: [address] [address] 15 SEE RESULT BELOW Name: LUCÍA HUTSON Jory : [address]: Brandon Sanchez MD Acct: [id number] Unit: [id number] AGE: 53 Location: ED Re07/04/19 SEX: F Status: DEP DEBRA SPEC: [id number] CLAUDINE: 07/04/[address]: Adela THOMAS REQ: [id number] RECD: 07/04/19 STATUS: OSITO JEAN DR: Brandon [...] . END OF REPORT DEPARTMENT OF PATHOLOGY, [address] [place] [address] Ben Matthews M.D. Director [facility] # [id number] 16 SEE RESULT BELOW Name: LUCÍA HUTSON : [address]: Brandon Sanchez MD Acct: [id number] Unit: [id number] AGE: 53 Location: ED Re07/04/19 SEX: F Status: DEP ER SPEC: [id number] CLAUDINE: 07/04/[address]: Adela THOMAS REQ: [id number] RECD: 07/04/19 STATUS: OSITO JEAN DR: Brandon [...] . END OF REPORT DEPARTMENT OF PATHOLOGY, [address] [place] [address] Ben Matthews M.D. Director [facility] # [id number] 17 Please check with today's infusion 18 Please check with today's infusion 19 Because ethnic data is not always readily [...] 15-29 5 Kidney failure <15 (or dialysis) 20 Because ethnic data is not always readily [...] 15-29 5 Kidney failure <15 (or dialysis) 21 Please check with today's infusion Procedures Date Code Description Status 09/17/2019 88753 Omt 7-8 Body Regions Completed 08/08/2019 35035 Omt 7-8 Body Regions Completed 07/19/2019 88645316 Colonoscopy Completed 06/15/2019 24054 Omt 7-8 Body Regions Completed Medical Devices Description No Information Available Encounters Type Date Location Provider Dx Diagnosis Office Visit 11/12/2019 2:00p Main Office Sahara Treviño MD R53.81 Other malaise Z68.38 Body mass index (BMI) 38.0-38.9, adult Office Visit 09/27/2019 10:20a Main Office Sarah Fragoso M54.5 Low back pain M79.7 Fibromyalgia Z79.899 Other snf (current) drug therapy Office Visit 09/17/2019 12:55p [...] Office Visit 07/03/2019 2:00p Main Office Morteza Hoffmann, [place].O. 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 Office Visit [...] M48.02 Spinal stenosis, cervical region Z79.899 Other termite control servicer (current) drug therapy F41.1 Generalized anxiety disorder [...] and somatic dysfunction of lower extremity Z79.52 penitentiary (current) use of systemic steroids M06.09 Rheumatoid arthritis w/o rheumatoid factor, multiple sites M51.36 Other intervertebral disc degeneration, lumbar region G57.11 Meralgia paresthetica, right lower limb M54.2 Cervicalgia M79.7 Fibromyalgia Assessments Date Code Description Provider 11/12/2019 R53.81 Other malaise Sahara Treviño MD 11/12/2019 Z68.38 Body mass index (BMI) 38.0-38.9, adult Sahara Treviño MD 09/27/2019 M54.5 Low back pain Lianne Leiva P.A. 09/27/2019 M79.7 Fibromyalgia Lianne Leiva P.A. 09/27/2019 Z79.899 Other snf (current) drug therapy Lianne Leiva P.A. 09/17/2019 M54.5 Low back pain Morteza Hoffmann D.O. 09/17/2019 M47.22 Other spondylosis with radiculopathy, Morteza Hoffmann D.O. cervical region 09/17/2019 M79.7 Fibromyalgia Morteza Hoffmann D.O. 09/17/2019 F33.9 Major depressive disorder, recurrent, Sopchak, Morteza, D.O. unspecified 09/17/2019 M99.05 Segmental and somatic [...] D.O. extremity 08/08/2019 Z23 Encounter for immunization SopzunildakDonavanon, D.O. 08/08/2019 M35.8 Other specified systemic involvement of SopDonavan richon, D.O. connective tissue 08/08/2019 F33.9 Major depressive disorder, recurrent, Morteza Hoffmann, D.O. unspecified 08/08/2019 F41.1 Generalized anxiety disorder Donavan Hoffmannon, D.O. 08/08/2019 M99.05 Segmental and somatic dysfunction of pelvic SopchakDonavanon , D.O. region 08/08/2019 M99.03 Segmental and [...] somatic dysfunction of rib cage Sopchak, Morteza, D.OLouis 08/08/2019 M99.06 Segmental and somatic dysfunction of lower Morteza Hoffmann D.O. extremity 07/11/2019 R10.9 Unspecified abdominal pain Renee Chapa PA 07/11/2019 R11.0 Nausea Renee Chapa, PA 07/11/2019 M35.8 Other specified systemic involvement of Renee Chapa, PA connective tissue 07/03/2019 R11.0 Nausea Morteza Hoffmann D.O. 07/03/2019 R10.9 Unspecified abdominal pain Morteza Hoffmann D.OLouis 07/03/2019 M35.8 Other specified systemic involvement of Morteza Hoffmann D.OLouis connective tissue 07/03/2019 F33.9 Major depressive disorder, recurrent, Morteza Hoffmann D.O. unspecified 07/03/2019 M47.22 Other spondylosis with radiculopathy, Morteza Hoffmann D.O. cervical region 07/03/2019 M48.02 Spinal stenosis, cervical region Morteza Hoffmann D.OLouis 07/03/2019 Z79.899 Other snf (current) drug therapy Morteza Hoffmann D.O. 07/03/2019 F41.1 Generalized anxiety disorder Morteza Hoffmann D.OLouis 07/03/2019 G57.11 Meralgia paresthetica, right lower limb Morteza Hoffmann D.O. 07/03/2019 M54.2 Cervicalgia Morteza Hoffmann D.O. 07/03/2019 M79.7 Fibromyalgia Morteza Hoffmann D.OLouis 07/03/2019 M51.36 Other intervertebral disc degeneration, Morteza Hoffmann D.OLouis lumbar region 07/03/2019 M06.09 Rheumatoid arthritis without rheumatoid Morteza Hoffmann D.O. 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 06/15/2019 M25.511 Pain in right shoulder Morteza Hoffmann D.O. 06/15/2019 M25.512 Pain in left shoulder Morteza Hoffmann D.O. 06/15/2019 M79.601 Pain in right arm TahiraMorteza D.O. 06/15/2019 M79.641 Pain in right hand Tahira Darien Pro.O. 06/15/2019 M79.642 Pain in left hand Tahira [place] Pro.O. 06/15/2019 M79.604 Pain in right leg TahiraMorteza D.O. 06/15/2019 M79.605 Pain in left leg Tahira [place] Pro.O. 06/15/2019 M79.671 Pain in right foot TahiraMorteza D.O. 06/15/2019 M79.672 Pain in left foot TahiraMorteza D.O. 06/15/2019 M35.8 Other specified systemic involvement of Morteza Hoffmann D.O. connective tissue 06/15/2019 F33.9 Major depressive disorder, recurrent, Morteza Hoffmann D.O. unspecified 06/15/2019 M47.22 Other spondylosis with radiculopathy, Morteza Hoffmann D.O. cervical region 06/15/2019 M48.02 Spinal stenosis, cervical region Morteza Hoffmann D.O. 06/15/2019 Z79.899 Other termite control servicer (current) drug therapy Morteza Hoffmann D.O. 06/15/2019 [...] lower Morteza Hoffmann D.O. extremity 06/15/2019 Z79.52 penitentiary (current) use of systemic steroids Morteza Hoffmann [...] pm - Morteza Hoffmann D.O. at Main [facility]4209/27/2019 - Sarah FragosoM54.5 Low back painM79.7 FibromyalgiaNew Medication:Prednisone 20 mg - 2 pills for 3 days then 1 pill for 3 days 1/2 pill for 4 days.Z79.899 Other termite control servicer (current) drug therapy Functional Status Description No Information Available Mental Status Description No Information Available Referrals Description No Information Available
[2019-12-25 22:08] VITALS: BP 139/79
--- NOTE | 2019-12-25 22:19 | UC ---
Nausea/Vomiting/Diarrhea HPI - HPI Summary HPI Summary: 54-year-old female who started having some diarrhea and nausea last evening. She's had no vomiting. She has been able to keep liquids down and she states that she feels like the diarrhea is letting up. Her last bout of diarrhea was approximately 2 hours ago. She states that she normally has chronic body aches but since she has been ill with diarrhea since last night she states her body aches have increased. She denies any fever or chills, no urinary symptoms. - History of Current Complaint Chief Complaint: UCGI Stated Complaint: DIARRHEA, NAUSEA Time Seen by Provider: 12/25/19 22:12 Hx Obtained From: Patient ?: No Onset/Duration: Gradual Onset Timing: Intermittent Episodes Lasting: Severity Initially: Mild Severity Currently: Mild Pain Intensity: 0 Character: Not Applicable Aggravating Factor(s): Nothing Alleviating Factor(s): Nothing Nausea/Vomiting Presence: Nauseated Diarrhea Presence: Yes Diarrhea Frequency: Every 3-4 hours - Patient states the diarrhea is letting up and her last bout was 2 hours ago. Diarrhea Duration: 12-24 hours Diarrhea Characteristics: Other - Loose - Allergies/Home Medications Allergies/Adverse Reactions: Allergies Allergy/AdvReac Type Severity Reaction Status Date / Time pregabalin [From Lyrica] Allergy Hives Verified 12/25/19 22:08 PMH/Surg Hx/FS Hx/Imm Hx Previously Healthy: Yes - Surgical History Surgical History: Yes Surgery Procedure, Year, and Place: CSP-REMOVED 2 VERTEBRAE REPLACED WITH CADAVER BONES. GASTRIC BYPASS - Family History Known Family History: Positive: Other - mom with diverticulitis - Social History Alcohol Use: Rare Alcohol Amount: 1-5 glasses of wine daily Substance Use Type: None Substance Use Comment - Amount & Last Used: marijuana: 1-2 x year Smoking Status (MU): Never Smoked Tobacco Have You Smoked in the Last Year: No Review of Systems All Other Systems Reviewed And Are Negative: Yes Gastrointestinal: Positive: Diarrhea, Nausea Musculoskeletal: Positive: Myalgia Is Patient Immunocompromised?: No Physical Exam Triage Information Reviewed: Yes Appearance: Well-Appearing, No Pain Distress, Well-Nourished Vital Signs: Initial Vital Signs Temp 97.6 F 12/25/19 22:04 Pulse 76 12/25/19 22:04 Resp 14 12/25/19 22:04 BP 139/79 12/25/19 22:04 Pulse Ox 98 12/25/19 22:04 Vital Signs Reviewed: Yes Eyes: Positive: Conjunctiva Clear ENT: Positive: Hearing grossly normal, Pharynx normal, TMs normal, Uvula midline Neck: Positive: Supple, Nontender, No Lymphadenopathy Respiratory: Positive: Lungs clear, Normal breath sounds, No respiratory distress, No accessory muscle use Cardiovascular: Positive: RRR, No Murmur, Pulses Normal, Brisk Capillary Refill Abdomen Description: Positive: Nontender, No Organomegaly, Soft. Negative: CVA Tenderness (R), CVA Tenderness (L), Distended, Guarding, Hepatomegaly, McBurney' s Point Tenderness, Splenomegaly Bowel Sounds: Positive: Present Musculoskeletal Exam: Normal Neurological Exam: Normal Psychological Exam: Normal Skin Exam: Normal Naus/Vom/Diarrhea Course/Dx - Course Course Of Treatment: The patient is comfortable here and does not appear ill. I believe her condition is improving and this was more than likely the viral syndrome in the local community. She states the diarrhea is better and is "letting up". - Differential Dx/Diagnosis Provider Diagnosis: Diarrhea Condition At Discharge: Fair Discharge ED - Sign-Out/Discharge Documenting (check all that apply): Patient Departure All imaging exams completed and their final reports reviewed: No Studies - Discharge Plan Condition: Fair Disposition: HOME Patient Education Materials: Acute Diarrhea (ED) Forms: *Work Release Referrals: Morteza Hoffmann DO [Primary Care Provider] - Additional Instructions: Increase fluids, rest, gradually increase to your regular diet, avoid spicy foods. Definite follow-up with her primary care provider if no improvement in 2 or 3 days. - Billing Disposition and Condition Condition: FAIR Disposition: Home - Attestation Statements Provider Attestation: This patient was not seen by me. I was available for consult. Chart reviewed. KANDIS
== END 2019-12-25 22:26 | disposition home or self-care (01) ==
LOC: UCCORT 22:00
DX: R19.7 Diarrhea, unspecified (principal); R11.0 Nausea; M79.10 Myalgia, unspecified site; Z88.8 Allergy status to other drugs, medicaments and biological substances
CPT/HCPCS: 99212; G0463

== ENCOUNTER 2020-08-19 05:44 | Inpatient (IN) ==
[2020-08-19] MEDS ORDERED: Lactated Ringers 1000 ml BAG 1,000 ML IV SCH (06:00)
[2020-08-19] MEDS ORDERED: Buffered Lidocaine 1% SYRIN 1 ml INTRADERM ONE (06:00)
[2020-08-19] MEDS ORDERED: ceFAZolin 2 GM PREMIX 2 GM/50 ML BAG ONE (06:48)
[2020-08-19] MEDS ORDERED: Midazolam 2 mg/2 ml VIAL 1 mg/ml 2 ml VIAL (2 mg) ONE (07:06)
[2020-08-19] MEDS ORDERED: Propofol 10 MG/ML 20 ML BTL ONE (07:06)
[2020-08-19] MEDS ORDERED: Succinylcholine 200 mg VIAL 20 mg/ml 10 ml VIAL (200 mg) ONE (07:06)
[2020-08-19] MEDS ORDERED: Dexamethasone IV 4 MG/ML VIAL 1 ml VIAL ONE (07:06)
[2020-08-19] MEDS ORDERED: Ondansetron 4 mg VIAL 2 MG/ML 2 ml VIAL ONE ×2 (07:06→13:47)
[2020-08-19] MEDS ORDERED: fentaNYL 250 mcg/5 ml 50 MCG/ML 5 ml VIAL (250 MCG) ONE (07:06)
[2020-08-19] MEDS ORDERED: Rocuronium 50 mg VIAL 10 mg/ml 5 ml VIAL (50 mg) ONE (07:07)
[2020-08-19] MEDS ORDERED: Phenylephrine IV 10 MG/ML 1 ml VIAL ONE (07:10)
[2020-08-19] MEDS ORDERED: Remifentanil 2 MG VIAL ONE ×4 (07:13→11:49)
[2020-08-19] MEDS ORDERED: Bupivacaine 0.25% SDV 30 ML ONE (07:14)
[2020-08-19] MEDS ORDERED: Bacitracin INJECTION 50,000 UNITS ONE ×2 (07:14→10:54)
[2020-08-19] MEDS ORDERED: Propofol 10 mg/ml 100 ML BTL 200 ML ONE (07:17)
[2020-08-19] MEDS ORDERED: Lidocaine 1% w EPI 1:200,000 SDV 30 ML VIAL ONE (07:31)
[2020-08-19] MEDS ORDERED: Artificial Tear OPHTH.OINT 3.5 GM ONE (07:57)
[2020-08-19] MEDS ORDERED: Naloxone 0.4 mg VIAL 0.4 mg/ml 1 ml VIAL IV PRN (08:17)
[2020-08-19] MEDS ORDERED: Ondansetron 4 mg VIAL 2 MG/ML 2 ml VIAL IV PRN (08:17)
[2020-08-19] MEDS ORDERED: Glycopyrrolate IV 0.2 MG/ML 1 ML VIAL ONE ×2 (08:26→08:29)
[2020-08-19] MEDS ORDERED: HYDROmorphone 1 MG/1 ML SYRINGE ONE ×5 (10:56→13:47)
[2020-08-19] MEDS ORDERED: Propofol 10 mg/ml 100 ML BTL 100 ML ONE (11:20)
[2020-08-19] MEDS ORDERED: Thrombin 5,000 UNITS 1 APPLIC KIT - topical use - TOPICAL ONE (11:31)
[2020-08-19] MEDS ORDERED: ceFAZolin VIAL VIAL ONE (11:54)
[2020-08-19] MEDS ORDERED: Magnesium Hydroxide LIQ 30 ML UDC PO PRN (13:33)
[2020-08-19] MEDS ORDERED: HYDROcodone/ACETAMIN 5/325 mg TAB PO PRN (13:33)
[2020-08-19] MEDS ORDERED: fentaNYL 100 mcg/2 ml 50 MCG/ML VIAL ONE (13:47)
[2020-08-19] MEDS: fentaNYL 100 mcg/2 ml 50 MCG/ML VIAL IV PRN ×4 (13:50→14:45)
[2020-08-19] MEDS: HYDROmorphone 1 MG/1 ML SYRINGE IV PRN ×4 (13:55→15:00)
[2020-08-19] MEDS: HYDROcodone/ACETAMIN 5/325 mg TAB PO PRN ×2 (16:08→20:16)
[2020-08-20] MEDS: HYDROcodone/ACETAMIN 5/325 mg TAB PO PRN ×3 (00:24→13:39)
[2020-08-20] MEDS ORDERED: TOFACITINIB 11 MG PO SCH (09:00)
[2020-08-20 11:16] VITALS: BP 118/51
[2020-08-20] MEDS ORDERED: Vitamin THERAPEUTIC TAB PO SCH (12:00)
== END 2020-08-20 15:50 | disposition home or self-care (01) | DRG 304 ==
LOC: AA 05:44 → SSU 15:49
PROVIDERS: ADMIT Neurological Surgery; ATTEND Neurological Surgery